=== PATIENT | female | born 1995 | race Caucasian/White ===

== ENCOUNTER 2022-01-13 09:41 | Emergency (ER) | payer BC, SELFPAY ==
--- NOTE | ~2022-01-13 | US_ITS ---
EXAMINATION: US OB <=14 wk fetus w TV DATE: 01/13/2022 11:11 INDICATION: Pelvic pain during first trimester TECHNIQUE: Real-time pelvic transabdominal and transvaginal ultrasound was performed. COMPARISON: None. FINDINGS: The uterus measures 8.0 x 5.1 x 4.3 cm. There is an intrauterine gestational sac. There is a small subchorionic hematoma. A yolk sac is identified. heart motion is identified measuring 112 beats per minute (bpm) by M-mode Doppler. The crown rump length measures 4 mm, which correl ates with an estimated gestational age of 6 weeks and 0 day(s) (+/-) 4 day(s). The right ovary measures 1.8 x 1.4 x 1.3 cm. The left ovary measures 2.5 x 2.5 x 1.9 cm. There is nor mal vascular flow in the ovaries. There is a small amount of free fluid in the pelvis adjacent to the left ovary. IMPRESSION: 1. Live intrauterine with an estimated gestational age of 6 weeks and 0 day(s) (+/-) 4 day( s) and an estimated delivery date of 09/08/2022. 2. Small subchorionic hematoma. Reviewed, dictated and finalized at location A. [employer] INTERNS[employer]IP IMPRESSION: 1. Live intrauterine with an estimated gestational age of 6 weeks and 0 day(s) (+/-) 4 day(s) and an estimated delivery date of 09/08/2022. 2. Small subchorionic hematoma.
[2022-01-13 09:49] VITALS: BP 140/88; PULSE 77; RESP 12; TEMP 36.7; O2SAT 100
[2022-01-13 10:08] VITALS: BP 140/85; PULSE 88; RESP 18; O2SAT 100
[2022-01-13 10:47] LABS: Basophils Absolute Auto 0.1 K/mm3 (0.0-0.1); Basophils Percent Auto 0.7 % (0.2-1.2); Eosinophils Percent Auto 0.4 % (0-4.4); Hematocrit 42.5 % (37.0-47.0); Hemoglobin 14.4 g/dL (12.0-15.0); Immature Granulocyte Absolute 0.02 K/mm3 (0.00-0.031); Immature Granulocyte Percent A 0.3 % (0-0.5); Lymphocytes Absolute Auto 0.71 K/mm3 (0.9-3.2); Lymphocytes Percent Auto 10.6 % (18.3-44.2); Mean Corpuscular HGB Conc 33.9 g/dl (32-36); Mean Corpuscular Hemoglobin 32.2 pg (26-34); Mean Corpuscular Volume 95.1 fl (80-100); Mean Platelet Volume 10.2 fl (7.4-10.4); Monocytes Absolute Auto 0.4 K/mm3 (0.1-0.6); Monocytes Percent Auto 6.4 % (2.6-8.5); Neutrophils Absolute Auto 5.5 K/mm3 (1.3-6.7); Neutrophils Percent Auto 81.6 % (45.5-73.1); Platelet Count Result 183 k/mm3 (150-375); Red Blood Count 4.47 M/mm3 (4.2-5.4); Red Cell Distribution Width 12.1 % (11.5-14.5); White Blood Count 6.7 K/mm3 (4.5-10.0)
[2022-01-13 10:50] LABS: Appearance Urine Clear (Clear); Bilirubin Urine Negative (Negative); Blood Urine Negative (Negative); Color Urine Yellow (Yellow); Glucose Urine UA Negative (Negative); Ketones Urine 3+ mg/dL (Negative); Leukocyte Esterase Ur Negative LEU/UL (Negative); Nitrate Urine Negative (Negative); Protein Urine Negative (Negative); Specific Grav Ur 1.015 (1.001-1.035); Urobilinogen Urine 0.2 mg/dL (<2.0); pH Urine 7.5 (5.0-9.0)
[2022-01-13 10:59] LABS: Alanine Aminotransferase 26 U/L (6-35); Albumin Level 4.7 g/dL (3.5-5.1); Alkaline Phosphatase 46 U/L (38-126); Anion Gap 14 mmol/L (8-16); Aspartate Amino Transferase 23 U/L (14-36); Bilirubin,Total 0.6 mg/dL (0.2-1.3); Blood Urea Nitrogen 4 mg/dL (7-17); Carbon Dioxide 25 mmol/L (22-30); Chloride 98 mmol/L (98-107); Estimated CRCL calculation 104 ml/min; Estimated Glomerular Filt Rate > 60; Glucose 105 mg/dL (65-110); Lipase 41 U/L (23-300); Potassium 3.4 mmol/L (3.4-5.0); Sodium 137 mmol/L (137-145)
[2022-01-13 11:00] LABS: Add Urine Microscopic? YES; Bacteria Urine Trace /hpf; Mucus Urine Few /lpf; RBC Urine 0-2 /hpf (0-2); Squamous Epithelial Cell Urine Few /hpf (Few)
[2022-01-13] MEDS: SODIUM CHLORIDE 0.9% IV 1,000 ML 999 ML IV CONT (11:49)
[2022-01-13 12:26] VITALS: BP 137/83; PULSE 95; RESP 18; O2SAT 100
--- NOTE | 2022-01-13 12:48 | ED.ABDPAIN ---
HPI - Abdominal Pain General Chief Complaint: Abdominal Pain Stated Complaint: Cramping with bowel movement Time Seen by Provider: 01/13/22 09:59 History of Present Illness HPI narrative: Patient is 26-year-old female who presents ER with lower abdominal cramping. Ongoing over the last week. Will get cramping in her lower abdomen that then makes her feel like she may need to have a bowel movement. She gets nauseous. No diarrhea. She reports she has had some firm stools. No vaginal bleeding or vaginal discharge. She does think she is . LMP early December but cannot give a date. Her OB is Dr. Lopez. She is a . Related Data Allergies Allergy/AdvReac Type Severity Reaction Status Date / Time No Known Allergies Allergy Verified 01/13/22 10:07 Review of Systems Review of Systems: All systems reviewed & are unremarkable except as noted in HPI and below Constitutional: Constitutional: Denies chills, Denies fatigue and Denies fever(s) ENT: Denies nasal congestion and Denies sore throat Cardiovascular: Cardiovascular: Denies chest pain, Denies rapid heart rate and Denies radiating jaw, neck or arm pain Respiratory: Respiratory: Denies cough and Denies dyspnea Gastrointestinal: Gastrointestinal: Denies vomiting Genitourinary: Genitourinary: Denies abnormal vaginal bleeding, Denies hematuria, Denies nocturia, Denies dysuria, Reports pelvic pain and Denies vaginal discharge PMFSH Past Medical History Medical History (Updated 01/13/22 @ 13:01 by Edy Hill MD) Healthy female adult Surgical History Surgical History (Updated 01/13/22 @ 12:53 by Edy Hill MD) No history of previous surgery Social History Social History (Updated 01/13/22 @ 12:55 by Edy Hill MD) Smoking status: Never smoker Exam Narrative: GENERAL: Well-appearing, well-nourished, and in no acute distress. HEAD: Normocephalic, atraumatic. EYES: PERRL and EOMI. ENT: Mucous membranes moist. CHEST: Clear to auscultation. No respiratory distress. HEART: Regular rate and rhythm. Normal peripheral pulses. ABDOMEN: Soft, mild right adnexal pain, nondistended. EXTREMITIES: Normal range of motion. No edema. SKIN: Warm, dry, no rash. NEURO: Alert and oriented x3. PSYCH: Normal mood and affect. Course Course Emergency Course: Patient informed of results. Discussed with Dr. Espino recommends close follow-up. Pain likely related to subchorionic hemorrhage. Vital Signs Vital signs: Vital Signs Temperature 98.0 F 01/13/22 09:49 Pulse Rate 77 01/13/22 09:49 Respiratory Rate 12 01/13/22 09:49 Blood Pressure 140/88 01/13/22 09:49 Pulse Oximetry 100 01/13/22 09:49 Temperature 98.0 F 01/13/22 09:49 Pulse Rate 95 01/13/22 12:26 Respiratory Rate 18 01/13/22 12:26 Blood Pressure 137/83 01/13/22 12:26 Pulse Oximetry 100 01/13/22 12:26 MDM - Abdominal Pain Lab Data Result diagrams: 01/13/22 10:31 01/13/22 10:31 Labs: Lab Results 01/13/22 01/13/22 01/13/22 Range/Units 10:31 10:31 10:31 WBC 6.7 (4.5-10.0) K/mm3 RBC 4.47 (4.2-5.4) M/mm3 Hgb 14.4 (12.0-15.0) g/dL Hct 42.5 (37.0-47.0) % MCV 95.1 (80-100) fl MCH 32.2 (26-34) pg MCHC 33.9 (32-36) g/dl RDW 12.1 (11.5-14.5) % Plt Count 183 (150-375) k/mm3 MPV 10.2 (7.4-10.4) fl Immature Gran % (Auto) 0.3 (0-0.5) % Neut % (Auto) 81.6 H (45.5-73.1) % Lymph % (Auto) 10.6 L (18.3-44.2) % Cross % (Auto) 6.4 (2.6-8.5) % Eos % (Auto) 0.4 (0-4.4) % Baso % (Auto) 0.7 (0.2-1.2) % Lymph # (Auto) 0.71 L (0.9-3.2) K/mm3 Cross # (Auto) 0.4 (0.1-0.6) K/mm3 Eos # (Auto) 0.0 (0-0.3) K/mm3 Baso # (Auto) 0.1 (0.0-0.1) K/mm3 Abs Immat Gran (auto) 0.02 (0.00-0.031) K/mm3 Absolute Neuts (auto) 5.5 (1.3-6.7) K/mm3 Absolute Nucleated RBC 0.0 (0.0-0.012) K/mm3 Nucleated RBC % 0.0 (0.0-0.2) % S
[2022-01-13 13:20] VITALS: BP 110/75; PULSE 74; RESP 18; O2SAT 100
== END 2022-01-13 13:22 | disposition home or self-care (01) ==
PROVIDERS: Emergency Provider Emergency Medicine; PCP Family Medicine Sports Medicine
DX: O46.91 Antepartum hemorrhage, unspecified, first trimester (principal); Z3A.01 Less than 8 weeks gestation of pregnancy
CPT/HCPCS: 36415; 76801; 76817; 80053; 81001; 81025; 83690; 84702; 85025; 86850; 86900; 86901; 96360; 99284; J7030

== ENCOUNTER → 2022-02-15 11:23 | Outpatient (CLI) | payer BC, SELFPAY ==
--- NOTE | ~2022-02-15 | US_ITS ---
EXAMINATION: US OB <= 14 weeks fetus DATE: 02/15/2022 11:53 INDICATION: First trimester viability assessment and subchorionic hematoma follow-up TECHNIQUE: Real-time pelvic transabdominal and transvaginal ultrasound was performed. COMPARISON: 01/13/2022 FINDINGS: The uterus measures 14 x 6.3 x 4 9.2 cm. There is an intrauterine gestational sac. No pers istent subchorionic hematoma is identified. heart motion is identified measuring 183 beats per minute (bpm) by M-mode Doppler. The crown rump length measures 4.0 cm, which correlates with an estimated gestational age of 10 weeks and 6 day(s) (+/-) 7 day(s). The ovaries are not visualized however no adnexal abnormality is seen. There is no free fluid in the pelvis. IMPRESSION: 1. Live intrauterine with an estimated gestational age of 10 weeks and 6 day(s) (+/-) 7 day (s) and an estimated delivery date of 09/07/2022. 2. No persistent subchorionic hematoma identified. Reviewed, dictated and finalized at location A. STICS LEAD IMPRESSION: 1. Live intrauterine with an estimated gestational age of 10 weeks an d 6 day(s) (+/-) 7 day(s) and an estimated delivery date of 09/07/2022. 2. No persistent subchorionic hematoma identified.
== END ==
PROVIDERS: PCP Obstetrics & Gynecology Gynecology; Visit Provider Obstetrics & Gynecology Gynecology
DX: O36.80X0 Pregnancy with inconclusive fetal viability, not applicable or unspecified (principal); O36.8910 Maternal care for other specified fetal problems, first trimester, not applicable or unspecified; Z3A.10 10 weeks gestation of pregnancy
CPT/HCPCS: 76801

== ENCOUNTER 2022-04-14 10:16 | Outpatient (CLI) | payer BC, SELFPAY ==
--- NOTE | ~2022-04-14 | US_ITS ---
EXAMINATION: US OB /maternal detail DATE: 04/14/2022 11:12 INDICATION: Second trimester anatomic survey TECHNIQUE: Real-time ultrasound of the pelvis was performed. COMPARISON: 02/15/2022 FINDINGS: There is a single living fetus in breech presentation. The placenta is anterior and 4.6 cm from the i nternal cervical os. The cervical length is 3.1 cm. heart rate is 161 beats per minute (bpm). cardiac activity and movement are noted. The amniotic fluid index is subjectively normal. Multiple tiny choroid plexus cysts are noted. The following anatomy was identified as normal: 4 chamber heart 3 vessel cord cord insertion kidneys urinary bladder stomach spine diaphragm ventricles cisterna magna cerebellum The following biometric data were obtained: Biparietal diameter (BPD): 4.2 cm; head circumference (HC): 16.0 cm; abdominal circumference (AC): 13 .5 cm; femur length (FL): 2.8 cm. These measurements are concordant. Estimated weight is 260 g +/- 39 g, which correlates with the 44th percentile when 09/09/2022 is used as estimated date of delivery. As single measurements, these parameters are each equal to the following estimated gestational ages w ith ranges of +/- 2 standard deviations: BPD: 18 weeks 6 days ( 17 weeks 1 days - 20 weeks 4 days). HC: 18 weeks 6 days ( 17 weeks 2 days - 20 weeks 2 days). AC: 19 weeks 0 days ( 16 weeks 6 days - 21 weeks 0 days). FL: 18 weeks 5 days ( 16 weeks 6 days - 20 weeks 3 days). estimated gestational age based solely on measurements from this exam is 18 weeks 6 days +/- 1 weeks 2 days. IMPRESSION: 1. Single living fetus in breech presentation. 2. Estimated weight is 260 g +/- 39 g, which correlates with the 44th percentile when 09/09/2022 is used as estimated date of delivery. 2. Multiple tiny choroid plexus cysts noted. Reviewed, dictated and finalized at location B. MANAGEMENT SUPERVISOR IMPRESSION: 1. Single living fetus in breech presentation. 2. Estimated weight is 260 g +/- 39 g, which correlates with the 44th per centile when 09/09/2022 is used as estimated date of delivery. 2. Multiple tiny choroid plexus cysts noted.
== END 2022-04-14 10:17 ==
LOC: MICIMG 10:17
PROVIDERS: PCP Obstetrics & Gynecology Gynecology; Visit Provider Obstetrics & Gynecology Gynecology
DX: Z36.9 Encounter for antenatal screening, unspecified (principal)
CPT/HCPCS: 76805

== ENCOUNTER 2022-07-19 15:22 | Outpatient (CLI) | payer BC, SELFPAY ==
--- NOTE | ~2022-07-19 | US_ITS ---
EXAMINATION: US OB follow up DATE: 07/19/2022 15:55 INDICATION: Choroid plexus cysts. Third trimester. TECHNIQUE: Real-time ultrasound of the pelvis was performed. COMPARISON: Ultrasound 04/14/2022, 02/15/2022, 01/13/2022 FINDINGS: There is a single living fetus in vertex presentation. The placenta is anterior, 13.3 cm from the ce rvix. heart rate is 135 beats per minute (bpm). The choroid plexus is unremarkable. The amnioti c fluid index is 16.3 cm, which is normal. The following biometric data were obtained: Biparietal diameter (BPD): 8.3 cm; head circumference (HC): 29.8 cm; abdominal circumference (AC): 29 .4 cm; femur length (FL): 6.0 cm. These measurements are concordant. Estimated weight is 2032 g +/- 305 g, which correlates with the 40th percentile when 09/08/22 is used as estimated date of delivery. As single measurements, these parameters are each equal to the following estimated gestational ages: BPD: 33 weeks 2 days. HC: 33 weeks 0 days. AC: 33 weeks 3 days. FL: 31 weeks 2 days. estimated gestational age based solely on measurements from this exam is 32 weeks 5 days +/- 2 weeks 2 days. IMPRESSION: 1. Single living fetus in vertex presentation. 2. Estimated weight is 2032 g +/- 305 g, which correlates with the 40th percentile when 09/08/22 is used as estimated date of delivery. Reviewed, dictated and finalized at location A.
== END 2022-07-19 15:23 ==
PROVIDERS: PCP Obstetrics & Gynecology Gynecology; Visit Provider Obstetrics & Gynecology Gynecology
DX: Z36.9 Encounter for antenatal screening, unspecified (principal); Z3A.32 32 weeks gestation of pregnancy
CPT/HCPCS: 76816

== ENCOUNTER 2022-09-06 06:03 | Inpatient (IN) | payer BC, SELFPAY ==
[2022-09-06] VITALS (163 sets, daily range): BP systolic 66–158; BP diastolic 52–133; PULSE 72–120; TEMP 36.2–37.6; O2SAT 98–100; BMI 34.0
--- NOTE | 2022-09-06 06:03 | LDADM ---
This patient, Janet Morales, was admitted to Labor/Delivery/Recovery 107 on 09/06/22 at 06:03. Plans for labor, pain management and were discussed with patient. Patient/family oriented to hospital policies and general routines including ID bracelet, bed and alarms, visiting hours, pain management, procedures, bathroom and other care routines, personal items, smoking policy, room service/diet and guest tray routines, infant security routines, and visiting hours. Patient/Family are encouraged to report perceived risks to care and to ask questions if they do not understand what they are told or what they should do. See OBIX for further documentation.
[2022-09-06 06:57] LABS: Basophils Absolute Auto 0.1 K/mm3 (0.0-0.1); Basophils Percent Auto 0.7 % (0.2-1.2); Eosinophils Absolute Auto 0.2 K/mm3 (0-0.3); Eosinophils Percent Auto 2.4 % (0-4.4); Hematocrit 40.6 % (37.0-47.0); Hemoglobin 14.2 g/dL (12.0-15.0); Immature Granulocyte Absolute 0.03 K/mm3 (0.00-0.031); Immature Granulocyte Percent A 0.4 % (0-0.5); Lymphocytes Absolute Auto 2.35 K/mm3 (0.9-3.2); Lymphocytes Percent Auto 28.7 % (18.3-44.2); Mean Corpuscular Hemoglobin 33.6 pg (26-34); Mean Platelet Volume 10.5 fl (7.4-10.4); Monocytes Absolute Auto 0.5 K/mm3 (0.1-0.6); Monocytes Percent Auto 5.6 % (2.6-8.5); Neutrophils Absolute Auto 5.1 K/mm3 (1.3-6.7); Neutrophils Percent Auto 62.2 % (45.5-73.1); Platelet Count Result 194 k/mm3 (150-375); Red Blood Count 4.23 M/mm3 (4.2-5.4); Red Cell Distribution Width 12.4 % (11.5-14.5); White Blood Count 8.2 K/mm3 (4.5-10.0)
[2022-09-06] MEDS: miSOPROStol 25 MCG TABLET BY MOUTH (07:10)
[2022-09-06] MEDS: LACTATED RINGERS 1,000 ML 125 ML IV CONT ×3 (07:10→20:23)
[2022-09-06] MEDS: AMPICILLIN 2 GM/NS 100 ML 2 GM/100 ML BAG IVPB (07:11)
--- NOTE | 2022-09-06 07:53 | WPDOBADMIT ---
Obstetrics - Admit Note Admission Note: record reviewed. No pertinent additions to the history and/or any subsequent changes in the physical findings that are not consistent with the expected course of the were found. Additions to the history and/or subsequent changes in the physical findings follow. Here for MIL. Cervix /-2. Cytotec x 1 then will AROM and start pitocin at lunch
[2022-09-06] MEDS: AMPICILLIN 1 GM/NS 50 ML 1 GM/50 ML BAG IVPB ×4 (11:23→23:24)
[2022-09-06] MEDS: OXYTOCIN 30 UNITS/NS 500 ML 30 UNITS/500 ML BAG 6 UNITS IV CONT (11:53)
--- NOTE | 2022-09-06 13:03 | PM.OBPNLAB ---
Pain Control Date/time seen: 09/06/22 13:03 Pain control: tolerating well Pelvic Exam Dilation (cm): 2 Effacement (%): 50 station: -2 Amniotic membrane status: Ruptured (AROM with clear fluid) Status status: Category l Assessment and Plan Assessment: induction ongoing
[2022-09-06] MEDS: ONDANSETRON INJ 4 MG/2 ML VIAL IV PUSH (16:31)
[2022-09-07] VITALS (273 sets, daily range): BP systolic 104–179; BP diastolic 50–151; PULSE 49–187; RESP 18–20; TEMP 36.3–37.2; O2SAT 95–100
[2022-09-07] MEDS: ONDANSETRON INJ 4 MG/2 ML VIAL IV PUSH ×2 (00:49→15:30)
[2022-09-07] MEDS: AMPICILLIN 1 GM/NS 50 ML 1 GM/50 ML BAG IVPB ×3 (03:22→11:32)
[2022-09-07] MEDS: LACTATED RINGERS 1,000 ML 125 ML IV CONT ×2 (05:18→13:18)
[2022-09-07] MEDS: AZITHROMYCIN 500 MG/NS 250 ML 500 MG/250 ML BAG 250 MG IVPB (14:29)
--- NOTE | 2022-09-07 15:42 | P.OP_ITS ---
Procedure Note - Detailed Date of Procedure 09/07/22 Pre-op Diagnosis Intrauterine at 39 weeks failure to descend Post-op Diagnosis Same ( occiput posterior position) Procedure Performed primary low-transverse section Surgeon Bridgette Haines MD Anesthesia Epidural Findings uterus with multiple subserosal fibroids measuring 1/2 to 2 cm anterior and posterior surfaces; female infant in the left occiput posterior position with a nuchal cord x1; meconium-stained fluid; weighing 7lb with 5 and 9 Apgars Description of Procedure The patient is taken to the operating room and placed under anesthesia in the dorsal supine position with a leftward tilt. The patient is prepped and draped in usual sterile fashion. Pfannenstiel skin incision was made with a scalpel and carried down to the underlying layer of fascia. Fascia was nicked in the midline with a scalpel and extended laterally using Carlin scissors. Ochsner was used to tent the fascia which was then dissected off using sharp and blunt dissection. The rectus muscles are in the midline and the peritoneum entered using a Peon. The incision was extended with blunt traction. The bladder blade is placed. The vesicouterine peritoneum was noted to be very high on the uterus. It is grasped with a Peon and entered with Metzenbaum scissors. It is extended laterally and the bladder flap created digitally. The lower uterine segment was incised in a transverse fashion with the scalpel. The neck is noted at the incision. The incision was extended with blunt traction. The 's head was brought up into the incision and delivered while the communications assistant applied fundal pressure. Nuchal cord x1 was reduced. The was fully delivered. The infant cord is clamped and cut and the infant handed to the waiting nursery nurse and land developer. The placenta was removed using manual traction. There was delayed detachment of 9minutes. Once detachment occurred the placenta delivered intact. The uterus is cleared of all clots and debris and exteriorized. The uterine incision was closed using 0 Monocryl in a running locked fashion with the same suture used to imbricate. One additional [id number] suture was required in the midline for hemostasis. There was a slight downward extension to the right. Good hemostasis is noted. The cul-de-sac is irrigated. The uterus was returned to the abdomen. The gutters were irrigated. The incision was again inspected in its entirety and noted to be hemostatic. The fascia is closed using 0 Vicryl in a running fashion. Subcutaneous tissues were irrigated and made hemostatic usin g Bovie cautery. Skin is closed using 4-0 Vicryl in a subcuticular fashion. Dermaflex was placed over the incision. Sponge, needle, and instrument counts are correct per the OR staff. The patient received Ancef at room time and received Zithromax. Patient is taken to recovery in stable condition. Estimated Blood Loss 630 Drains Yes ( Goode catheter) Packing No Pathology Yes ( placenta) Complications No immediate complications Condition Stable Disposition Floor
--- NOTE | 2022-09-07 15:49 | PM.OBDSVD ---
DS: Admitting Diagnosis Discharge Date 09/10/22 Admitting Diagnosis intrauterine at 39 weeks for medical induction of labor DS: Discharge Diagnosis Discharge Diagnosis (1) Failure of descent in labor, delivered, current hospitalization: Code(s): O62.2 - Other uterine inertia Status: Acute (2) S/P primary low transverse : Code(s): Z98.891 - History of uterine scar from previous surgery Status: Acute OB - DS: Summary OB Procedures : Ultrasound OB Procedures Intrapartum: low cervical, transverse OB Procedures: : None Peripartum Data Infant Delivery Method: Section Procedures: Procedures Operation Date: 09/07/22 15:00 <No data on this case meets the specified criteria> complications: none Status at Discharge Functional status at discharge: independent ambulation Overall status at discharge: patient is progressing back to baseline Time Spent with Patient Time attestation: Total time spent providing and/or coordinating discharge services: Discharge Plan Discharge Attending physician on discharge: Bridgette Haines Discharging Clinician: Bridgette Haines Anticipated Discharge Date/Time: 09/10/22 15:50 Patient Disposition: Home, Self-Care Activity: may shower, may drive after 2 weeks and pelvic rest Diet: regular Wound Care Instructions: incision open to air Patient Instructions: Antibiotic Form Stand Alone Forms: General Discharge Information Follow-up/Referrals: Bridgette Haines MD [Physician] - 1 Week ( and 6 week) Discharge Medications: New hydrocodone-acetaminophen 5-325 mg tablet 1 tablet PO Q4H PRN (Reason: pain) Qty: 14 0RF Continued Complete 30-975 mg-mcg Tablet 1 tablet PO DAILY Discontinued aspirin [Baby Aspirin] 81 mg Tablet,Chewable 81 mg PO DAILY Date of admission: 09/06/22 06:03 Primary Care Provider: Richard,Lucero Torres Admitting Provider: Bridgette Haines Attending physician on admission: Bridgette Haines Condition: Stable
[2022-09-07 16:38] LABS: Rapid Plasma Reagin Non-Reactive (NonReactive)
[2022-09-07] MEDS: OXYTOCIN 30 UNITS/NS 500 ML 30 UNITS/500 ML BAG 125 UNITS IV CONT (17:37)
[2022-09-07] MEDS: KETOROLAC 30 MG/ML VIAL (*BKC) IV PUSH (18:47)
[2022-09-07] MEDS: DEXTROSE 5%/0.45% SOD CHL 1,000 ML 125 ML IV CONT (21:57)
[2022-09-08] MEDS: KETOROLAC 30 MG/ML VIAL (*BKC) IV PUSH (02:36)
[2022-09-08 03:00] VITALS: BP 108/64; PULSE 100; RESP 18; TEMP 36.4; O2SAT 100
[2022-09-08 03:05] LABS: Basophils Absolute Auto 0.1 K/mm3 (0.0-0.1); Basophils Percent Auto 0.4 % (0.2-1.2); Eosinophils Absolute Auto 0.1 K/mm3 (0-0.3); Eosinophils Percent Auto 0.5 % (0-4.4); Hematocrit 37.8 % (37.0-47.0); Hemoglobin 11.6 g/dL (12.0-15.0); Immature Granulocyte Absolute 0.04 K/mm3 (0.00-0.031); Immature Granulocyte Percent A 0.3 % (0-0.5); Immature Platelet Fraction Pct 3.8 % (0.9-11.2); Lymphocytes Absolute Auto 1.86 K/mm3 (0.9-3.2); Lymphocytes Percent Auto 13.9 % (18.3-44.2); Mean Corpuscular HGB Conc 30.7 g/dl (32-36); Mean Corpuscular Hemoglobin 33.1 pg (26-34); Mean Platelet Volume 10.7 fl (7.4-10.4); Monocytes Absolute Auto 0.7 K/mm3 (0.1-0.6); Monocytes Percent Auto 5.2 % (2.6-8.5); Neutrophils Absolute Auto 10.7 K/mm3 (1.3-6.7); Neutrophils Percent Auto 79.7 % (45.5-73.1); Platelet Count Result 152 k/mm3 (150-375); Red Cell Distribution Width 12.9 % (11.5-14.5); White Blood Count 13.4 K/mm3 (4.5-10.0)
[2022-09-08 07:00] VITALS: BP 111/66; PULSE 94; RESP 14; TEMP 36.4; O2SAT 96
--- NOTE | 2022-09-08 08:26 | PM.OBPNVD ---
OB - PN: Subj Subjective Date/time seen: 09/08/22 08:26 Patient comments: no complaints and pain well controlled baby status: doing well OB - PN: Obj Data Labs 09/08/22 02:36 Labs: Laboratory Results - last 24 hr 09/06/22 09/08/22 06:41 02:36 WBC 13.4 H RBC 3.50 L Hgb 11.6 L Hct 37.8 MCV 108.0 H D MCH 33.1 MCHC 30.7 L RDW 12.9 Plt Count 152 MPV 10.7 H Immature Gran % (Auto) 0.3 Neut % (Auto) 79.7 H Lymph % (Auto) 13.9 L Evangeline % (Auto) 5.2 Eos % (Auto) 0.5 Baso % (Auto) 0.4 Lymph # (Auto) 1.86 Evangeline # (Auto) 0.7 H Eos # (Auto) 0.1 Baso # (Auto) 0.1 Abs Immat Gran (auto) 0.04 H Absolute Neuts (auto) 10.7 H Absolute Nucleated RBC 0.0 Nucleated RBC % 0.0 % Immature Plt Fraction 3.8 RPR Non-reactive OB - PN A/P Plan day: 1 Plan: routine care Time Spent With Patient Time: Total time spent is greater than 50% in coordination of care (as documented) at patient's floor/unit and/or counseling patient: Exam Narrative: inc c/d/i minimal bruising below incision : Bimanual exam- vagina & uterus: other (Uterus firm, nt @U)
--- NOTE | 2022-09-08 09:30 | WPDANLDNPN2 ---
Anes-Prog Note L&D-Neuraxial Date/Time: 09/08/22 09:30 Neuraxial medications: intrathecal PF morphine Opiod-related complaints: none Patient feedback: Patient satisfied with post-operative pain management.
--- NOTE | 2022-09-08 09:32 | WPDANLDPN2 ---
Anes-Prog Note L&D Date/Time: 09/08/22 09:32 Comfortable throughout: labor, delivery and section Neuraxial method: spinal Epidural/Spinal procedure site: clean & non-tender Neuro status: Neuro function grossly intact. Cardiovascular status: normal Respiratory status: normal Airway patency: baseline Mental status: baseline Post-Op hydration status: normal Vital Signs: Last Vital Signs Temp 36.4 C 09/08/22 03:00 Pulse 100 09/08/22 03:00 Resp 18 09/08/22 03:00 BP 108/64 09/08/22 03:00 Pulse Ox 100 09/08/22 03:00 O2 Del Method Room Air 09/08/22 03:00 Pain score (VAS): 1 I/O: Intake & Output 09/07/22 09/08/22 09/08/22 23:59 07:59 15:59 Intake Total 500 1800 Output Total 350 1525 Balance 150 275 Patient feedback: Patient satisfied with anesthetic care.
[2022-09-08] MEDS: SIMETHICONE 80 MG TAB.CHEW PO (12:00)
[2022-09-08] MEDS: MULTIVIT/MIN/PREN/FOL AC/IRON TABLET 1 TAB PO (12:00)
[2022-09-08] MEDS: DOCUSATE SODIUM 100 MG CAPSULE PO ×3 (12:00→16:30)
[2022-09-08] MEDS: HYDROcodone/acetaminophen (*CRX) 5-325 MG TABLET 1 TAB PO ×2 (12:00→16:30)
[2022-09-08] MEDS: IBUPROFEN 600 MG TABLET PO (16:30)
[2022-09-08 19:20] VITALS: BP 133/86; PULSE 92; RESP 16; TEMP 36.6; O2SAT 99
[2022-09-09] MEDS: HYDROcodone/acetaminophen (*CRX) 5-325 MG TABLET 1 TAB PO ×3 (00:53→22:03)
[2022-09-09] MEDS: IBUPROFEN 600 MG TABLET PO ×3 (00:54→22:03)
--- NOTE | 2022-09-09 08:10 | PM.OBPNVD ---
OB - PN: Subj Subjective Date/time seen: 09/09/22 08:10 Patient comments: no complaints and pain well controlled baby status: doing well OB - PN: Obj Data Labs 09/08/22 02:36 OB - PN A/P Plan day: 2 Plan: routine care Time Spent With Patient Time: Total time spent is greater than 50% in coordination of care (as documented) at patient's floor/unit and/or counseling patient: Exam Narrative: inc c/d/i : Bimanual exam- vagina & uterus: other (Uterus firm, nt @U)
[2022-09-09] MEDS: MULTIVIT/MIN/PREN/FOL AC/IRON TABLET 1 TAB PO (11:15)
[2022-09-09] MEDS: SIMETHICONE 80 MG TAB.CHEW PO ×2 (11:15→22:03)
[2022-09-09] MEDS: DOCUSATE SODIUM 100 MG CAPSULE PO ×2 (11:15→22:08)
[2022-09-09 12:00] VITALS: BP 123/86; PULSE 72; RESP 16; TEMP 36.9
[2022-09-09 21:00] VITALS: BP 135/90; PULSE 86; RESP 16; TEMP 36.7
[2022-09-10 07:41] VITALS: BP 154/107; PULSE 92; RESP 16; TEMP 36.7; O2SAT 98
[2022-09-10] MEDS: DOCUSATE SODIUM 100 MG CAPSULE PO (07:52)
[2022-09-10] MEDS: IBUPROFEN 600 MG TABLET PO (07:52)
[2022-09-10] MEDS: MULTIVIT/MIN/PREN/FOL AC/IRON TABLET 1 TAB PO (07:52)
[2022-09-10] MEDS: HYDROcodone/acetaminophen (*CRX) 5-325 MG TABLET 1 TAB PO (07:52)
[2022-09-10] MEDS: SIMETHICONE 80 MG TAB.CHEW PO (07:52)
[2022-09-10 08:37] VITALS: BP 149/101
--- NOTE | 2022-09-10 09:45 | PM.OBPNVD ---
OB - PN: Subj Subjective Date/time seen: 09/10/22 09:45 Patient comments: no complaints, pain well controlled and tolerating diet [place] baby status: other (transferred to [facility] with heart murmur and BP differential upper/lower ext. ) OB - PN: Obj Data Labs 09/08/22 02:36 OB - PN A/P Plan day: 3 Plan: routine care and discharge home Time Spent With Patient Time: Total time spent is greater than 50% in coordination of care (as documented) at patient's floor/unit and/or counseling patient: Exam Narrative: inc c/d/i : Bimanual exam- vagina & uterus: other (Uterus firm, nt @U)
--- NOTE | 2022-09-10 10:29 | PC.NURSE ---
Patient viewed the discharge video Mother & Baby Care, The First Two Weeks . Patient was given the opportunity and encouraged to ask questions. Patient verbalized understanding of information shared and has been given the mother/baby guide for home reference.
[2022-09-11 09:57] VITALS: BP 143/86; PULSE 82; RESP 18; TEMP 36.8; O2SAT 100
== END 2022-09-10 10:42 | disposition home or self-care (01) | DRG 788 ==
LOC: ANHLDR 09-07 15:51 → ANHOB2 09-07 18:08
PROVIDERS: Admitting Provider Obstetrics & Gynecology Gynecology; PCP Family Medicine Sports Medicine; Visit Provider Obstetrics & Gynecology Gynecology
PROC: 10D00Z1 Extraction of Products of Conception, Low, Open Approach (ICD-10-PCS; CPT 59514; principal; 2022-09-07 15:00)
DX: O99.824 Streptococcus B carrier state complicating childbirth (principal); Z37.0 Single live birth; Z3A.39 39 weeks gestation of pregnancy; O69.81X0 Labor and delivery complicated by cord around neck, without compression, not applicable or unspecified; O64.0XX0 Obstructed labor due to incomplete rotation of fetal head, not applicable or unspecified; O62.2 Other uterine inertia; D25.2 Subserosal leiomyoma of uterus; O77.0 Labor and delivery complicated by meconium in amniotic fluid; O34.13 Maternal care for benign tumor of corpus uteri, third trimester
CPT/HCPCS: 36415; 85025; 85055; 86592; 86850; 86900; 86901; 88307; A9270; J0290; J0456; J1885; J2274; J2405; J2590; J2795; J7120

== ENCOUNTER 2024-05-27 15:35 | Outpatient (CLI) | payer BC, SELFPAY ==
--- NOTE | ~2024-05-27 | US_ITS ---
EXAMINATION: US OB <= 14 weeks fetus DATE: 05/27/2024 15:56 INDICATION: First trimester with inconclusive viability TECHNIQUE: Real-time pelvic ultrasound utilizing transabdominal probe was performed. The hazel barragan radiologist was not present for the study. COMPARISON: None. FINDINGS: The uterus measures 12.7 x 7.2 x 6.0 cm. There is an intrauterine gestational sac. A yolk sac and fe gage pole are identified. The crown rump length measures 4.9 cm, which correlates with an estimated ge stational age of 11 weeks and 5 days. heart motion is identified measuring 185 beats per minute (bpm) by M-mode Doppler. The right ovary measures 3.1 x 2.1 x 2.4 cm. The left ovary is not visualized There is no free fluid in the pelvis. IMPRESSION: 1. Single living fetus with heart rate of 185 bpm. 2. Gestational age by ultrasound of 11 weeks 5 day(s) +/- 7 day(s) with ultrasound estimated date of delivery (YADIRA) of 12/11/2024. Reviewed, dictated and finalized at location B. IMPRESSION: 1. Single living fetus with heart rate of 185 bpm. 2. Gestational age by ultrasound of 11 weeks 5 day(s) +/- 7 day(s) with ultras ound estimated date of delivery (YADIRA) of 12/11/2024.
== END 2024-05-27 15:36 | disposition home or self-care (01) ==
LOC: MICIMG 15:38
PROVIDERS: PCP Obstetrics & Gynecology Gynecology; Visit Provider Obstetrics & Gynecology Gynecology
DX: O36.80X0 Pregnancy with inconclusive fetal viability, not applicable or unspecified (principal); Z3A.11 11 weeks gestation of pregnancy
CPT/HCPCS: 76801

== ENCOUNTER 2024-07-28 12:57 | Outpatient (CLI) | payer BC, SELFPAY ==
--- NOTE | ~2024-07-28 | US_ITS ---
EXAMINATION: US OB /maternal detail DATE: 07/28/2024 18:04 CDT INDICATION: Anatomy scan TECHNIQUE: Real-time transabdominal obstetric ultrasound. FINDINGS: 2 para 1 There is a single intrauterine gestation in variable presentation. The placenta is posterior. The tip of the placenta measures 6.3 cm from the internal cervical os. The cervix measures 4 cm in length. cardiac activity and movement is noted with a heart rate of 147 beats per minute. Anatomic parameters are as follows The bladder is visualized and is unremarkable. A three-vessel cord is present. Cord insertion is demonstrated to be on the midline. Bilateral kidneys are present without hydronephrosis. The anterior and posterior margin of the diaphragm is continuous. The cervical, thoracic and lumbar spines are covered in their entirety. choroid plexi are visualized, and unremarkable. Lateral ventricles are visualized measuring 5.6 and 5.8 mm, respectively. The falx is visualized. The cerebellum is visualized measuring 18.4 mm, and is sonographically unremarkable. The cisterna magna measures 5.7mm in anterior to posterior dimension (normal measurement is 2 to 10 m m). The nuchal fold measures 4.5 mm (greater than 6 mm is considered abnormal). Cine of the four-chamber heart is visualized and is anatomic. Both the right and left ventricular outflow tracts are identified and are unremarkable. Limited views of the arms, hands, legs and feet were performed and appear grossly unremarkable. Evaluation of the upper lip and nose to confirm their continuity is appreciated on the submitted imag es. The following biometric data were obtained: Biparietal diameter (BPD): 4.7 cm; head circumference (HC): 17.1 cm; abdominal circumference (AC): 16.2 cm; femur length (FL): 3 cm. These measurements are concordant. Estimated weight is 352.7 g +/- 53 g, which correlates with the 37th percentile when 12/14/2024 is used as estimated date of delivery. As single measurements, these parameters are each equal to the following estimated gestational ages: BPD: 20 weeks 0 days. HC: 19 weeks 5 days. AC: 21 weeks 2 days. FL: 19 weeks 5 days. estimated gestational age based solely on measurements from this exam is 20 weeks 1 day +/- 1 w [place] 3 days. IMPRESSION: Single intrauterine gestation with an approximate gestational age of 20 weeks and 1 day. Estimated du e date by ultrasound is 12/14/2024. Anatomy scan is unremarkable Reviewed, dictated and finalized at location A. IMPRESSION: Single intrauterine gestation with an approximate gestational age of 20 weeks a nd 1 day. Estimated due date by ultrasound is 12/14/2024. Anatomy scan is unremarkable
== END 2024-07-28 12:58 | disposition home or self-care (01) ==
LOC: MICIMG 12:58
PROVIDERS: PCP Obstetrics & Gynecology Gynecology; Visit Provider Obstetrics & Gynecology Gynecology
DX: Z36.9 Encounter for antenatal screening, unspecified (principal); Z3A.00 Weeks of gestation of pregnancy not specified
CPT/HCPCS: 76805

== ENCOUNTER 2024-08-14 09:50 | Outpatient (CLI) | payer BC, SELFPAY ==
--- NOTE | ~2024-08-14 | US_ITS ---
US OB limited 08/14/2024 10:33 Indication: Vaginal bleeding during Procedure: High-resolution Limited obstetrical ultrasound Comparison: No prior studies for comparison. Findings: There is single living intrauterine in transverse presentation. Placenta is poste rior measuring 6.1 cm to the cervix. Amniotic fluid is subjectively normal. heart rate 148 BPM. Impression: 1: Single living intrauterine in transverse presentation. 2: Posterior placenta without previa. The placenta is grossly normal, without suggestion of placenta abruption. However, ultrasound is not diagnostic of abruption since acute hemorrhage can be isoechoi c to be placenta. Recommend clinical correlation. Reviewed, dictated and finalized at location B. Impression: 1: Single living intrauterine in transverse presentation. 2: Posterior placenta without previa. The placenta is grossly normal, without s uggestion of placenta abruption. However, ultrasound is not diagnostic of abru ption since acute hemorrhage can be isoechoic to be placenta. Recommend clinic al correlation.
--- OUTSIDE RECORDS SUMMARY | 2024-08-14 09:57 | XMS_ITS | Clinical Summary ---
Author Organization [facility] u[facility] Address [address] [place] [address] Phone Care Team Providers Care Fiberglass Laminator Name Role Phone Unavailable Primary Care Provider Unavailabl e Encounters Date Type Department Care Team Description 06/18/2024 Chart Note [facility] Maternal and Ground Floor [id number] [place] [address] Betty Arambula RN from Last 3 Months Social History Tobacco Use Types Packs/Day Years Used Date Smoking Tobacco: Never Assessed Comments Unknown Sex and Gender Information Value Date Recorded Sex Assigned at Not on file Legal Sex Female 8:33 AM ANNUAL GIVING DIRECTOR Gender Identity Not on file Sexual Orientation Not on file Plan of Treatment Upcoming Encounters Date Type Department Care Team (Late st Contact Info) Description 08/14/2024 3:00 PM CDT Appointment [facility] Genetic Counseling [address] [facility] [address] [address] Bridgette Haines MD [address] [address] Chaim Briones, FORREST [address] [address] Health Maintenance Due Date Last Done Comments DTAP/TDAP/TD VACCINES (1 - Tdap) 08/08/2014 HEPATITIS B VACCINES (1 of 3 - 19+ 3-dose series) 08/08/2014 CERVICAL CANCER SCREENING 08/08/2016 HPV/Cotest (21-29) 08/08/2016 PAP SMEAR 08/08/2016 INFLUENZA VACCINE (#1) 2023 02/22/2022 HPV VACCINES Aged Out No longer eligi ble based on patient's age to complete this topic Insurance [facility] BLUE ACCESS CHOICE
--- OUTSIDE RECORDS SUMMARY | 2024-08-14 09:57 | XMS_ITS | Referral Summary ---
Author Organization [facility] Address [address] [facility] [facility] [address] [place] [address] Phone Care Team Providers Care Final Inspector Motorcyles Name Role Phone Lucero Ramos MD Primary Care Provider Encounters Date Type Department Care Team Description 07/28/2024 Telephone [facility] Pediatric Genetics [facility] 2nd [place] [address] [place] [phone] Estelle Tate, [facility] [place] Last 3 Months Allergies No known active allergies Medications PNV no.95/ferrous fum/folic ac ( ORAL) Take by mouth daily Active Active Problems No known active problems Immunizations Immunization Administration Dates Next Due Influenza, Quadrivalent, Spl it, Preservative Free, Intramuscular 02/22/2022 Social History Tobacco Use Types Packs/Day Years Used Date Smoking Tobacco: Never Smokeless Tobacco: Never Tobacco Cessation:Counseling Given: Not Answered AUDIT-C Answer Date Recorded Frequency of Alcohol Consumption Not on file 02/22/2022 Q2: How many drinks containi ng alcohol do you have on a typical day when you are drinking? Patient does not drink Frequency of Binge Drinking Not on file 02/02 PHQ-2 Answer Date Recorded PHQ-2 Total Score (If total score is 3 or more points, staff should administer the PHQ-9) 0 02/22/2022 Personal Safety Answer Date Recorded Getting School Help Needed Not on file 02/25 Comments Unknown Sex and Gender Information Value Date Recorded Sex Assigned at Not on file Legal Sex Female 10:45 AM CDT Gender Identity Not on file Sexual Orientation Not on file Last Filed Vital Signs Vital Sign Reading Time Taken Comments Blood Pressure 118/72 02/22/2022 8:29 AM VENDING ROUTE DRIVER Pulse 104 02/22/2022 8:29 AM VENDING ROUTE DRIVER Temperature - - Respiratory Rate - - Oxygen Saturation - - Inhaled Oxygen Concentration - - Weight 73 kg (161 lb) 02/22/2022 8:29 AM VENDING ROUTE DRIVER Height 162.6 cm (5' 4) 02/22/2022 8:29 AM VENDING ROUTE DRIVER Body Mass Index 27.64 02/22/2022 8:29 AM VENDING ROUTE DRIVER Plan of Treatment Not on file Insurance [employer] OOS [employer] ACCESS Care Teams Final Inspector Motorcyles Relationship Specialty Start Date End Date Lucero Ramos MD PCP - General Family Practice 02/22/22
--- OUTSIDE RECORDS SUMMARY | 2024-08-14 09:57 | XMS_ITS | Clinical Summary ---
Author Organization [facility] Address [address] [facility] [address] [place] [address] Phone Care Team Providers Care Seal Mixing Operator Name Role Phone Lucero Ramos MD Primary Care Provider Allergies No known active allergies Medications PNV no.95/ferrous fum/folic ac ( ORAL) Take by mouth daily Active Active Problems No known active problems Encounters Date Type Department Care Team Description 07/28/2024 Telephone [facility] Pediatric Genetics [facility] 2nd [place] [address] [place] [phone] Estelle Tate [facility] from Last 3 Months Immunizations Immunization Administration Dates Next Due Influenza, Quadrivalent, Spl it, Preservative Free, Intramuscular 02/22/2022 Surgical History Surgery Date Site/Laterality Comments NO PAST SURGERIES Medical History Medical History Date Comments No pertinent past medical history Family History Medical History Relation Name Comments Multiple sclerosis Mother Stroke Paternal Grandfather Relation Name Status Comments Father Alive Mother Alive Paternal Grandfather Social History Tobacco Use Types Packs/Day Years [...] on file Sexual Orientation Not on file Obstetrics History Para Term AB IAB SAB Ectopic Multiple Livin g Live Births 1 Date Outcome GA Total Labor Labor/2nd/3rd Weight Sex Type Anes PTL Faith A1 A5 Name Clin Last Filed Vital Signs Vital Sign Reading Time Taken Comments Blood Pressure 118/72 02/22/2022 8:29 AM HUMAN CAPITAL CONSULTANT Pulse 104 02/22/2022 8:29 AM HUMAN CAPITAL CONSULTANT Temperature - - Respiratory Rate - - Oxygen Saturation - - Inhaled Oxygen Concentration - - Weight 73 kg (161 lb) 02/22/2022 8:29 AM HUMAN CAPITAL CONSULTANT Height 162.6 cm (5' 4) 02/22/2022 8:29 AM HUMAN CAPITAL CONSULTANT Body Mass Index 27.64 02/22/2022 8:29 AM HUMAN CAPITAL CONSULTANT Plan of Treatment Health Maintenance Due Date Last Done Comments Cervical Cancer Screening 1995 Hepatitis C Screening 1995 DTaP/Tdap/Td Vaccine (1 - Tdap) 08/08/2006 Varicella Vaccines (1 of 2 - 13+ 2-dose series) 08/08/2008 Hepatitis B Screening 08/08/2013 Depression Screening 02/22/2023 02/22/2022 Regular Well Visit/Exam 18-64 02/22/2023 02/22/2022 Covid-19 Vaccine (3 - 2023-2 5 season) 2023 06/21/2020, 05/31/2020 Influenza Vaccine (Season Ended) 2024 02/22/2022 HPV Vaccines Aged Out No longer eligi ble based on patient's age to complete this topic Pneumococcal vaccine <65 Aged Out No longer eligible based on patient's age to complete this topic Insurance [employer] OOS [facility] ACCESS Care Teams Seal Mixing Operator Relationship Specialty Start Date End Date Lucero Ramos MD PCP - General Family Practice 02/22/22
== END 2024-08-14 09:51 | disposition home or self-care (01) ==
PROVIDERS: PCP Obstetrics & Gynecology Gynecology; Visit Provider Obstetrics & Gynecology Gynecology
DX: O26.852 Spotting complicating pregnancy, second trimester (principal); Z3A.00 Weeks of gestation of pregnancy not specified
CPT/HCPCS: 76815

== ENCOUNTER 2024-11-17 09:46 | Outpatient (CLI) | payer BC, SELFPAY ==
[2024-11-17] VITALS (14 sets, daily range): BP systolic 137–156; BP diastolic 88–110; PULSE 80–96; RESP 18; TEMP 36.6; O2SAT 98–100; BMI 34.2
[2024-11-17 10:32] LABS: Hematocrit 39.7 % (37.0-47.0); Hemoglobin 13.8 g/dL (12.0-15.0); Immature Granulocyte Percent A 0.2 % (0-0.5); Lymphocytes Absolute Auto 1.96 K/mm3 (0.9-3.2); Mean Corpuscular HGB Conc 34.8 g/dl (32-36); Mean Corpuscular Hemoglobin 32.9 pg (26-34); Mean Corpuscular Volume 94.5 fl (80-100); Nucleated Red Blood Cells Absolute Auto 0.000 K/mm3 (0.0-0.012); Nucleated Red Blood Cells Perc 0.0 % (0.0-0.2); Platelet Count Result 175 k/mm3 (150-375); Red Blood Count 4.20 M/mm3 (4.2-5.4); White Blood Count 8.1 K/mm3 (4.5-10.0)
[2024-11-17 10:36] LABS: Add Urine Microscopic? YES; Appearance Urine Clear (Clear); Glucose Urine UA Negative (Negative); Leukocyte Esterase Ur Trace LEU/UL (Negative); Nitrate Urine Negative (Negative); Non Pathogenic Casts 0-2; Specific Grav Ur 1.005 (1.001-1.035)
[2024-11-17 10:42] LABS: Total Protein Urine Random 12 mg/dL; Ur Ttl Prot Creatinine Ratio 0.43 mg/mg (0-0.20)
[2024-11-17 10:52] LABS: Alanine Aminotransferase 19 U/L (6-35); Albumin Level 3.5 g/dL (3.5-5.1); Alkaline Phosphatase 116 U/L (38-126); Anion Gap 5 mmol/L (4-12); Aspartate Amino Transferase 27 U/L (14-36); Bilirubin,Total 0.5 mg/dL (0.2-1.3); Blood Urea Nitrogen 11 mg/dL (7-17); Calcium 8.7 mg/dL (8.4-10.2); Carbon Dioxide 22 mmol/L (22-30); Chloride 107 mmol/L (98-107); Estimated Glomerular Filt Rate > 60; Glucose 84 mg/dL (65-110); Potassium 3.9 mmol/L (3.4-5.0); Sodium 134 mmol/L (137-145); Total Protein 6.5 g/dL (6.3-8.2); Uric Acid 4.6 mg/dL (2.5-7.5)
--- OUTSIDE RECORDS SUMMARY | 2024-11-17 11:16 | XMS_ITS | Clinical Summary ---
Author Organization [facility] Address [address] [place] [phone] Phone Care Team Providers Care Swimming Pool Servicer Name Role Phone Unavailable Primary Care Provider Unavailabl e Encounters Date Type Department Care Team Description 10/07/2024 External Device Data STL ABSTRACTION Provider, Abstract 09/16/2024 External Device Data STL ABSTRACTION Provider, Abstract 09/16/2024 External Device Data STL ABSTRACTION Provider, Abstract 09/15/2024 External Device Data STL ABSTRACTION Provider, Abstract 09/01/2024 External Device Data STL ABSTRACTION Provider, Abstract 08/19/2024 External Device Data STL ABSTRACTION Provider, Abstract 08/18/2024 External Device Data STL ABSTRACTION Provider, Abstract 08/18/2024 External Device Data STL ABSTRACTION Provider, Abstract from Last 3 Months Social History Tobacco Use Types Packs/Day Years Used Date Smoking Tobacco: Never Assessed Comments Unknown Sex and Gender Information Value Date Recorded Sex Assigned at Not on file Legal Sex Female 8:33 AM WHALE FISHERMAN Gender Identity Not on file Sexual Orientation Not on file Plan of Treatment Health Maintenance Due Date Last Done Comments DTAP/TDAP/TD VACCINES (1 - Tdap) 08/08/2014 HEPATITIS B VACCINES (1 of 3 - 19+ 3-dose series) 09/2014 CERVICAL CANCER SCREENING 08/08/2016 HPV/Cotest (21-29) 08/08/2016 PAP SMEAR 08/08/2016 HPV VACCINES (1 - 3-dose SCDM series) 08/08/2022 INFLUENZA VACCINE (#1) 2024 02/22/2022 Insurance [facility] PREFERRED
--- OUTSIDE RECORDS SUMMARY | 2024-11-17 11:16 | XMS_ITS | Clinical Summary ---
Author Organization [facility] Address [address] [facility] [address] [place] [address] Phone Care Team Providers Care Insurance Policy Clerk Name Role Phone Lucero Ramos MD Primary [...] Comments Blood Pressure 118/72 02/22/2022 8:29 AM BUSINESS PLANNER Pulse 104 02/22/2022 8:29 AM BUSINESS PLANNER Temperature - - Respiratory Rate - - Oxygen Saturation - - Inhaled Oxygen Concentration - - Weight 73 kg (161 lb) 02/22/2022 8:29 AM BUSINESS PLANNER Height 162.6 cm (5' 4) 02/22/2022 8:29 AM BUSINESS PLANNER Body Mass Index 27.64 02/22/2022 8:29 AM BUSINESS PLANNER Plan of Treatment Health Maintenance Due Date Last Done Comments Cervical Cancer Screening 1995 Hepatitis C Screening 1995 DTaP/Tdap/Td Vaccine (1 - Tdap) 08/08/2006 Varicella Vaccines (1 of 2 - 13+ 2-dose series) 08/08/2008 Hepatitis B Screening 08/08/2013 HPV Vaccines (1 - 3-dose SCD M series) 08/08/2022 Depression Screening 02/22/2023 02/22/2022 Regular Well Visit/Exam 18-64 02/22/2023 02/22/2022 Covid-19 Vaccine (3 - 2024-2 6 season) 2024 06/21/2020, 05/31/2020 Influenza Vaccine (#1) 2024 02/22/2022 Pneumococcal vaccine <65 Aged Out No longer eligible based on patient's age to complete this topic Insurance [employer] ACCESS Care Teams Insurance Policy Clerk Relationship Specialty Start Date End Date Lucero Ramos MD PCP - General Family Practice 02/22/22
--- NOTE | 2024-11-17 11:57 | PC.NURSE ---
Dr Haines notified of BP and Lab results. Orders receivd.
[2024-11-17 21:50] LABS: Hematocrit 41.0 % (37.0-47.0); Hemoglobin 14.3 g/dL (12.0-15.0); Immature Granulocyte Percent A 0.2 % (0-0.5); Lymphocytes Absolute Auto 2.44 K/mm3 (0.9-3.2); Mean Corpuscular HGB Conc 34.9 g/dl (32-36); Mean Corpuscular Hemoglobin 32.9 pg (26-34); Mean Corpuscular Volume 94.5 fl (80-100); Nucleated Red Blood Cells Absolute Auto 0.000 K/mm3 (0.0-0.012); Nucleated Red Blood Cells Perc 0.0 % (0.0-0.2); Platelet Count Result 200 k/mm3 (150-375); Red Blood Count 4.34 M/mm3 (4.2-5.4); White Blood Count 8.2 K/mm3 (4.5-10.0)
[2024-11-18 02:02] VITALS: BP 125/88; PULSE 89; RESP 17; TEMP 36.1
--- NOTE | 2024-11-18 02:30 | PC.NURSE ---
Pt resting comfortably in bed. VSS, NST reactive and reassuring. Pt denies any TUTTLE, SOB, epigastric pain. +FM
[2024-11-18 07:07] VITALS: BP 128/91; PULSE 88; PULSE 94; O2SAT 99
[2024-11-18 07:16] VITALS: BP 126/89; PULSE 79
[2024-11-18 07:31] VITALS: BP 128/97; PULSE 75
--- NOTE | 2024-11-18 07:47 | PM.IMHP ---
H&P: HPI History of Present Illness Date/Time: 11/18/24 07:47 Chief Complaint: Elevated blood pressure Narrative: Patient is a 29-year-old 2 para 1 at 36-,1/7 weeks who was seen for her routine visit yesterday and noted to have elevated blood pressure. She was sent to Labor and delivery for a further evaluation and blood work was normal. Blood pressures remain elevated in the 130 to 140 over 90 to 110 range only 1 in the severe range. Patient without symptoms of PIH. Protein creatinine ratio is elevated. 24hour urine is in progress. If the 24 urine rules in for preeclampsia the plan is to proceed with a repeat today. has been uncomplicated to this point. labs A-positive, rubella immune, RPR negative, hepatitis-B surface antigen negative, HIV negative, group B strep performed yesterday and not returned. Review of Systems Review of Systems: not repeated day of surgery; patient states no changes in status PMFSH Past Medical History Medical History (Updated 11/18/24 @ 07:50 by Bridgette Haines MD) Healthy female adult Surgical History Surgical History (Updated 11/18/24 @ 07:51 by Bridgette Haines MD) S/P primary low transverse History of Family History Family History Mother Multiple sclerosis Social History Social History (Updated 01/13/22 @ 12:55 by Edy Hill MD) Smoking status: Never smoker Substance use: never Lack of Transportation: No Lack of Food: Never True Current Housing: I Have Housing Concerned About Future Housing: No Difficulty Paying Gas/Electric Bills: No Difficulty Paying for Meds: No Currently Unemployed: No Education: Master's Degree or Higher Difficulty w/ Childcare or Family Care: No Spiritual care concerns: No Meds Home Medications and Allergies Home Medications ?Medication ?Instructions ?Recorded ?Confirmed ?Type vit 24-iron amino acid 1 tablet PO DAILY 08/24/22 11/17/24 History chelat-folic acid 30 mg-975 mcg tablet Allergies Allergy/AdvReac Type Severity Reaction Status Date / Time No Known Allergies Allergy Verified 11/17/24 14:56 Vital Signs Vital Signs - 24 hr 11/17/24 10:15 11/17/24 10:31 11/17/24 10:45 Temperature Pulse Rate 92 86 92 Respiratory Rate Blood Pressure 144/105 H 140/102 H 142/100 H Pulse Oximetry Oxygen Delivery 11/17/24 11:00 11/17/24 11:30 11/17/24 13:32 Temperature Pulse Rate 85 80 Respiratory Rate Blood Pressure 151/110 H 143/93 H Pulse Oximetry Oxygen Delivery Room Air 11/17/24 15:40 11/17/24 18:07 11/17/24 21:09 Temperature Pulse Rate 96 92 Respiratory Rate Blood Pressure 142/88 H 146/107 H Pulse Oximetry 98 Oxygen Delivery 11/17/24 21:10 11/17/24 21:14 11/17/24 21:16 Temperature 97.9 F Pulse Rate 86 Respiratory Rate 18 Blood Pressure 156/110 H Pulse Oximetry 100 Oxygen Delivery 11/17/24 21:19 11/17/24 21:46 11/17/24 22:01 Temperature Pulse Rate 84 85 Respiratory Rate Blood Pressure 149/95 H 137/88 Pulse Oximetry 100 Oxygen Delivery 11/18/24 02:02 11/18/24 07:07 11/18/24 07:16 Temperature 97 F L Pulse Rate 89 94 79 Respiratory Rate 17 Blood Pressure 125/88 128/91 H 126/89 Pulse Oximetry 99 Oxygen Delivery 11/18/24 07:31 Temperature Pulse Rate 75 Respiratory Rate Blood Pressure 128/97 H Pulse Oximetry Oxygen Delivery Exam Const: General: healthy appearing and alert Orientation/consciousness: patient oriented x3 Resp: Effort & Inspection: normal respiratory effort GI: GI Palp: Yes Soft to palpation, No Tenderness to palpation present (GI) and Yes Other GI palpation findings present (Fundal height 36cm) : External Female Exam: normal external appearance Speculum Exam - Vagina: normal vaginal discharge Manual OB Exam: dilated 1 cm (11.5) and effaced 50% Neuro: General: patient oriented x3 H&P: Results Labs Labs: Short CBC 11/17/24 11/17/24 Range/Units 10:26 21:45 WBC 8.1 8.2 (4.5-10.0) K/mm3 Hgb 13.8 14.3 (12.0-15.0) g/dL Hct 39.7 41.0 (37.0-47.0) % Plt Count 175 200 (150-375) k/mm3 BMP 11/17/24 10:26 Sodium 134 L Potassium 3.9 Chloride 107 Carbon Dioxide 22 BUN 11 D Creatinine 0.63 L Glucose 84 Calcium 8.7 Liver Function 11/17/24 Range/Units 10:26 Total Bilirubin 0.5 (0.2-1.3) mg/dL AST 27 (14-36) U/L ALT 19 (6-35) U/L Alkaline Phosphatase 116 (38-126) U/L Albumin 3.5 (3.5-5.1) g/dL Urine 11/17/24 Range/Units 10:26 Urine Color Yellow (Yellow) Urine Appearance Clear (Clear) Urine pH 7.0 (5.0-9.0) Ur Specific [place] 1.005 (1.001-1.035) Urine Protein Negative (Negative) mg/dL Urine Glucose (UA) Negative (Negative) mg/dL Assessment and Plan Assessment and plan (1) 36 weeks gestation of : Code(s): Z3A.36 - 36 weeks gestation of Status: Acute Assessment and Plan: 03/10 (2) induced hypertension: Code(s): O13.9 - Gestational [-induced] hypertension without significant proteinuria, unspecified trimester Status: Acute Assessment and Plan: 24 urine in progress to determine if preeclamptic. If preeclamptic the plan was for delivery this evening by section. (3) History of : Code(s): Z98.891 - History of uterine scar from previous surgery Status: Acute Assessment and Plan: Patient requests repeat section.
[2024-11-18 10:51] LABS: Total Protein Urine Random 10 mg/dL
[2024-11-18 10:55] LABS: Total Protein Urine 24 Hr 200 mg/24hr (28-141); Total Volume 24 Hour Urine 2000 ml
[2024-11-18 11:43] LABS: Creatinine Clearance Urine 103.1 ml/min (75-125); Serum Creat 0.63
--- NOTE | 2024-11-18 11:50 | PC.NURSE ---
Dr. Haines paged at [phone]. Returned page at [phone]. Notified of 24h urine protein 200 and creatinine clearance 103.1. Order received for pt. to dc home. Pt. to be on bedrest and cannot be caregiver of her living child. Pt. to get a BP cuff and check BP QID and keep a log. Pt. to call and notify the office if systolic BP greater than 150 and diastolic greater than 100. Pt. to have 2XW NSTs with today being 1 of 2 for this week.
--- NOTE | 2024-11-18 12:29 | PC.NURSE ---
Unable to document in worklist IV assessment. IV removed from left wrist at 1220.
[2024-11-18 12:52] LABS: Syphilis IgG/IgM Antibody Non-Reactive (Nonreactive)
== END 2024-11-18 12:29 | disposition home or self-care (01) ==
LOC: ANHOBOP 09:51 → ANHOBPP 11-18 12:08
PROVIDERS: PCP Obstetrics & Gynecology Gynecology; Visit Provider Obstetrics & Gynecology Gynecology
DX: O13.9 Gestational [pregnancy-induced] hypertension without significant proteinuria, unspecified trimester (principal); Z3A.00 Weeks of gestation of pregnancy not specified
CPT/HCPCS: 36415; 59025; 80053; 81001; 81050; 82570; 82575; 84156; 84550; 85025; 86593; 86850; 86900; 86901; 99199

== ENCOUNTER 2024-11-22 07:47 | Observation (INO) | payer BC, SELFPAY ==
[2024-11-22] VITALS (28 sets, daily range): BP systolic 134–157; BP diastolic 83–109; PULSE 85–111
--- OUTSIDE RECORDS SUMMARY | 2024-11-22 07:50 | XMS_ITS | Clinical Summary ---
Author Organization [facility] Address [address] [facility] [facility] [address] [place] [address] Phone Care Team Providers Care Extrusion Press Supervisor Name Role Phone Lucero Ramos MD Primary [...] Comments Blood Pressure 118/72 02/22/2022 8:29 AM WORM PACKER Pulse 104 02/22/2022 8:29 AM WORM PACKER Temperature - - Respiratory Rate - - Oxygen Saturation - - Inhaled Oxygen Concentration - - Weight 73 kg (161 lb) 02/22/2022 8:29 AM WORM PACKER Height 162.6 cm (5' 4) 02/22/2022 8:29 AM WORM PACKER Body Mass Index 27.64 02/22/2022 8:29 AM WORM PACKER Plan of Treatment Health Maintenance Due Date [...] patient's age to complete this topic Insurance [employer] ACCESS Care Teams Extrusion Press Supervisor Relationship Specialty Start Date End Date Lucero Ramos MD PCP - General Family Practice 02/22/22
[2024-11-22 08:15] LABS: Hematocrit 40.3 % (37.0-47.0); Hemoglobin 13.8 g/dL (12.0-15.0); Immature Granulocyte Percent A 0.3 % (0-0.5); Lymphocytes Absolute Auto 2.12 K/mm3 (0.9-3.2); Mean Corpuscular HGB Conc 34.2 g/dl (32-36); Mean Corpuscular Hemoglobin 32.6 pg (26-34); Mean Corpuscular Volume 95.3 fl (80-100); Nucleated Red Blood Cells Absolute Auto 0.000 K/mm3 (0.0-0.012); Nucleated Red Blood Cells Perc 0.0 % (0.0-0.2); Platelet Count Result 171 k/mm3 (150-375); Red Blood Count 4.23 M/mm3 (4.2-5.4); White Blood Count 7.8 K/mm3 (4.5-10.0)
[2024-11-22 08:31] LABS: Alanine Aminotransferase 22 U/L (6-35); Albumin Level 3.4 g/dL (3.5-5.1); Alkaline Phosphatase 131 U/L (38-126); Anion Gap 6 mmol/L (4-12); Aspartate Amino Transferase 27 U/L (14-36); Bilirubin,Total 0.5 mg/dL (0.2-1.3); Blood Urea Nitrogen 9 mg/dL (7-17); Calcium 8.5 mg/dL (8.4-10.2); Carbon Dioxide 20 mmol/L (22-30); Chloride 107 mmol/L (98-107); Estimated Glomerular Filt Rate > 60; Glucose 84 mg/dL (65-110); Potassium 4.0 mmol/L (3.4-5.0); Sodium 133 mmol/L (137-145); Total Protein 6.5 g/dL (6.3-8.2); Uric Acid 4.3 mg/dL (2.5-7.5)
[2024-11-22 08:35] LABS: Add Urine Microscopic? YES; Appearance Urine Cloudy (Clear); Glucose Urine UA Negative (Negative); Leukocyte Esterase Ur 2+ LEU/UL (Negative); Need Manual Microscopic Reviewed; Nitrate Urine Negative (Negative); Specific Grav Ur 1.016 (1.001-1.035)
[2024-11-22 09:58] LABS: Total Protein Urine Random 11 mg/dL; Ur Ttl Prot Creatinine Ratio 0.08 mg/mg (0-0.20)
[2024-11-22] MEDS: CEPHALEXIN 500 MG CAPSULE PO (10:19)
--- NOTE | 2024-11-27 07:37 | P.PNOB_ITS ---
OB - Triage/Final Diagnosis Visit Information Reason for evaluation: other (gestational hypertension) Comments/Additional reasons for admission: I have assessed the risk for this patient, Janet Morales, and determined that she would benefit from observation care. Evaluation Laboratory results: Laboratory Tests 11/22/24 08:01 WBC 7.8 RBC 4.23 Hgb 13.8 Hct 40.3 MCV 95.3 MCH 32.6 MCHC 34.2 RDW 12.4 Plt Count 171 MPV 10.9 H Immature Gran % (Auto) 0.3 Neut % (Auto) 63.1 Lymph % (Auto) 27.3 [place] % (Auto) 5.5 Eos % (Auto) 3.2 Baso % (Auto) 0.6 Lymph # (Auto) 2.12 [place] # (Auto) 0.4 Eos # (Auto) 0.3 Baso # (Auto) 0.1 Abs Immat Gran (auto) 0.02 Absolute Neuts (auto) 4.9 Absolute Nucleated RBC 0.000 Nucleated RBC % 0.0 Sodium 133 L Potassium 4.0 Chloride 107 Carbon Dioxide 20 L Anion Gap 6 BUN 9 Creatinine 0.57 L Estim Creat Clear Calc Not Reportable Estimated GFR > 60 Glucose 84 Uric Acid 4.3 Calcium 8.5 Total Bilirubin 0.5 AST 27 ALT 22 Alkaline Phosphatase 131 H Total Protein 6.5 Albumin 3.4 L Urine Color Yellow Urine Appearance Cloudy H Urine pH 6.5 Ur Specific [place] 1.016 Urine Protein Trace Urine Glucose (UA) Negative Urine Ketones Negative Ur Blood (Man) 2+ H Urine Nitrate Negative Urine Bilirubin Negative Urine Urobilinogen 0.2 Add Ur Microanalysis Reviewed Leukocyte Esterase Rfl 2+ H Urine RBC 3-5 H Urine WBC 51-100 H Ur Squamous Epith Cells Many H Urine Bacteria 4+ H Urine Casts 3-5 U Random Total Protein 11 Urine Creatinine 145.2 Protein/Creat Ratio 2 0.08
== END 2024-11-22 14:55 | disposition home or self-care (01) ==
LOC: ANHOBOP 07:49 → ANHLDR 07:50 → ANHOBOP 13:26 → ANHLDR 13:26
PROVIDERS: Admitting Provider Obstetrics & Gynecology Gynecology; Visit Provider Obstetrics & Gynecology Gynecology
DX: O13.3 Gestational [pregnancy-induced] hypertension without significant proteinuria, third trimester (principal); Z3A.36 36 weeks gestation of pregnancy
CPT/HCPCS: 36415; 59025; 80053; 81001; 82570; 84156; 84550; 85025; A9270; G0378; G0379

== ENCOUNTER 2024-11-25 15:23 | Outpatient (CLI) | payer BC, SELFPAY ==
--- OUTSIDE RECORDS SUMMARY | 2024-11-25 15:27 | XMS_ITS | Clinical Summary ---
Author Organization [facility] Address [address] [place] [phone] Phone Care Team Providers Care Customer Quality Engineer Name Role Phone Unavailable Primary Care Provider [...] on file Legal Sex Female 8:33 AM CLICKER OPERATOR Gender Identity Not on file Sexual Orientation Not on file Plan of Treatment Health Maintenance Due Date Last Done Comments DTAP/TDAP/TD VACCINES (1 - Tdap) 08/08/2014 HEPATITIS B VACCINES (1 of 3 - 19+ 3-dose series) 09/2014 CERVICAL CANCER SCREENING 08/08/2016 HPV/Cotest (21-29) 08/08/2016 PAP SMEAR 08/08/2016 HPV VACCINES (1 - 3-dose SCDM series) 08/08/2022 INFLUENZA VACCINE (#1) 2024 02/22/2022 Insurance [employer] [facility]
--- OUTSIDE RECORDS SUMMARY | 2024-11-25 15:27 | XMS_ITS | Clinical Summary ---
Author Organization [facility] Address [address] [facility] [address] [place] [address] Phone Care Team Providers Care Concierge Receptionist Name Role Phone Lucero Ramos MD Primary [...] Comments Blood Pressure 118/72 02/22/2022 8:29 AM DATA CONSULTANT Pulse 104 02/22/2022 8:29 AM DATA CONSULTANT Temperature - - Respiratory Rate - - Oxygen Saturation - - Inhaled Oxygen Concentration - - Weight 73 kg (161 lb) 02/22/2022 8:29 AM DATA CONSULTANT Height 162.6 cm (5' 4) 02/22/2022 8:29 AM DATA CONSULTANT Body Mass Index 27.64 02/22/2022 8:29 AM DATA CONSULTANT Plan of Treatment Health Maintenance Due [...] patient's age to complete this topic Insurance [employer] ACCESS Care Teams Concierge Receptionist Relationship Specialty Start Date End Date Lucero Ramos MD PCP - General Family Practice 02/22/22
[2024-11-25 15:45] VITALS: BP 141/98; PULSE 93
[2024-11-25 16:01] VITALS: BP 138/90; PULSE 93
[2024-11-25 16:01] LABS: Hematocrit 39.8 % (37.0-47.0); Hemoglobin 13.7 g/dL (12.0-15.0); Immature Granulocyte Percent A 0.3 % (0-0.5); Lymphocytes Absolute Auto 1.95 K/mm3 (0.9-3.2); Mean Corpuscular HGB Conc 34.4 g/dl (32-36); Mean Corpuscular Hemoglobin 32.7 pg (26-34); Mean Corpuscular Volume 95.0 fl (80-100); Nucleated Red Blood Cells Absolute Auto 0.000 K/mm3 (0.0-0.012); Nucleated Red Blood Cells Perc 0.0 % (0.0-0.2); Platelet Count Result 199 k/mm3 (150-375); Red Blood Count 4.19 M/mm3 (4.2-5.4); White Blood Count 7.9 K/mm3 (4.5-10.0)
[2024-11-25 16:09] LABS: Total Protein Urine Random 15 mg/dL; Ur Ttl Prot Creatinine Ratio 0.34 mg/mg (0-0.20)
[2024-11-25 16:11] LABS: Alanine Aminotransferase 19 U/L (6-35); Albumin Level 3.6 g/dL (3.5-5.1); Alkaline Phosphatase 125 U/L (38-126); Anion Gap 7 mmol/L (4-12); Aspartate Amino Transferase 28 U/L (14-36); Bilirubin,Total 0.3 mg/dL (0.2-1.3); Blood Urea Nitrogen 14 mg/dL (7-17); Calcium 8.9 mg/dL (8.4-10.2); Carbon Dioxide 21 mmol/L (22-30); Chloride 105 mmol/L (98-107); Estimated Glomerular Filt Rate > 60; Glucose 85 mg/dL (65-110); Potassium 3.9 mmol/L (3.4-5.0); Sodium 133 mmol/L (137-145); Total Protein 6.7 g/dL (6.3-8.2); Uric Acid 4.9 mg/dL (2.5-7.5)
[2024-11-25 16:15] VITALS: BP 137/94; PULSE 103
[2024-11-25 16:20] LABS: Add Urine Microscopic? YES; Appearance Urine Cloudy (Clear); Glucose Urine UA Negative (Negative); Leukocyte Esterase Ur 3+ LEU/UL (Negative); Need Manual Microscopic Reviewed; Nitrate Urine Negative (Negative); Specific Grav Ur 1.007 (1.001-1.035)
[2024-11-25 16:31] VITALS: BP 133/94; PULSE 92
--- NOTE | 2024-11-25 16:46 | PC.NURSE ---
1627- Called Dr. Haines to report lab results and vital signs. notified of elevated blood pressures. Order received to [place] pt. home with 24 hour urine.
[2024-11-25 16:48] VITALS: BP 141/98; PULSE 93
[2024-11-25 16:59] VITALS: BP 141/98; PULSE 93
== END 2024-11-25 16:45 | disposition home or self-care (01) ==
LOC: ANHOBOP 15:26 → ANHOBPP 15:27
PROVIDERS: Visit Provider Obstetrics & Gynecology Gynecology
DX: O13.9 Gestational [pregnancy-induced] hypertension without significant proteinuria, unspecified trimester (principal); Z3A.00 Weeks of gestation of pregnancy not specified
CPT/HCPCS: 36415; 59025; 80053; 81001; 82570; 84156; 84550; 85025; 99199

== ENCOUNTER 2024-11-26 18:28 | Outpatient (NON) | payer BC, SELFPAY ==
[2024-11-26 18:28] VITALS: BMI 34.2
--- OUTSIDE RECORDS SUMMARY | 2024-11-26 19:30 | XMS_ITS | Clinical Summary ---
Author Organization [facility] Address [address] [facility] [address] [place] [address] Phone Care Team Providers Care Melangeur Operator Name Role Phone Lucero Ramos MD [...] Comments Blood Pressure 118/72 02/22/2022 8:29 AM SHAKER OUT Pulse 104 02/22/2022 8:29 AM SHAKER OUT Temperature - - Respiratory Rate - - Oxygen Saturation - - Inhaled Oxygen Concentration - - Weight 73 kg (161 lb) 02/22/2022 8:29 AM SHAKER OUT Height 162.6 cm (5' 4) 02/22/2022 8:29 AM SHAKER OUT Body Mass Index 27.64 02/22/2022 8:29 AM SHAKER OUT Plan of Treatment Health Maintenance Due Date [...] patient's age to complete this topic Insurance [employer] ACCESS Care Teams Melangeur Operator Relationship Specialty Start Date End Date Lucero Ramos MD PCP - General Family Practice 02/22/22
--- OUTSIDE RECORDS SUMMARY | 2024-11-26 19:30 | XMS_ITS | Clinical Summary ---
Author Organization [facility] Address [address] [place] [phone] Phone Care Team Providers Care Financial Compliance Officer Name Role Phone Unavailable Primary Care Provider [...] on file Legal Sex Female 8:33 AM LATHE SET UP PERSON Gender Identity Not on file Sexual Orientation [...] (#1) 2024 02/22/2022 Insurance [employer] [facility]
[2024-11-26 20:00] LABS: Total Volume 24 Hour Urine 1400 ml
[2024-11-26 20:08] LABS: Creatinine Clearance Urine 126.5 ml/min (75-125); Serum Creat 0.74; Total Protein Urine 24 Hr 252 mg/24hr (28-141); Total Protein Urine Random 18 mg/dL
== END 2024-11-26 18:29 | disposition home or self-care (01) ==
LOC: ANHOBOP 19:28
PROVIDERS: Visit Provider Obstetrics & Gynecology Gynecology
DX: Z34.90 Encounter for supervision of normal pregnancy, unspecified, unspecified trimester (principal); Z3A.00 Weeks of gestation of pregnancy not specified
CPT/HCPCS: 81050; 82575; 84156

== ENCOUNTER 2024-11-27 08:50 | Outpatient (RCR) | payer BC, SELFPAY ==
[2024-11-20 09:12] VITALS: BP 143/98; PULSE 99
[2024-11-27 09:26] VITALS: BP 132/88; PULSE 48
== END 2024-12-12 09:29 | disposition other institution (70) ==
LOC: ANHOBOP 08:50
PROVIDERS: Visit Provider Obstetrics & Gynecology Gynecology
DX: O16.3 Unspecified maternal hypertension, third trimester (principal); Z3A.36 36 weeks gestation of pregnancy
CPT/HCPCS: 59025

== ENCOUNTER 2024-12-07 12:12 | Outpatient (CLI) | payer BC, SELFPAY ==
[2024-12-07 13:05] LABS: Hematocrit 38.3 % (37.0-47.0); Hemoglobin 13.3 g/dL (12.0-15.0); Immature Granulocyte Percent A 0.2 % (0-0.5); Lymphocytes Absolute Auto 2.27 K/mm3 (0.9-3.2); Mean Corpuscular HGB Conc 34.7 g/dl (32-36); Mean Corpuscular Hemoglobin 32.9 pg (26-34); Mean Corpuscular Volume 94.8 fl (80-100); Nucleated Red Blood Cells Absolute Auto 0.000 K/mm3 (0.0-0.012); Nucleated Red Blood Cells Perc 0.0 % (0.0-0.2); Platelet Count Result 178 k/mm3 (150-375); Red Blood Count 4.04 M/mm3 (4.2-5.4); White Blood Count 8.6 K/mm3 (4.5-10.0)
--- OUTSIDE RECORDS SUMMARY | 2024-12-07 13:17 | XMS_ITS | Clinical Summary ---
Author Organization [facility] Address [address] [place] [phone] Phone Care Team Providers Care Fishing Tool Supervisor Name Role Phone Unavailable Primary Care Provider Unavailabl e Encounters Date Type Department Care Team Description 12/01/2024 External Device Data STL ABSTRACTION Provider, Abstract 10/07/2024 External Device Data STL ABSTRACTION Provider, [...] on file Legal Sex Female 8:33 AM TECHNICAL ILLUSTRATIONS MAP INKER Gender Identity Not on file Sexual Orientation [...] (#1) 2024 02/22/2022 Insurance [employer] [facility]
--- OUTSIDE RECORDS SUMMARY | 2024-12-07 13:17 | XMS_ITS | Clinical Summary ---
Author Organization [facility] Address [address] [facility] [facility] [address] [place] [phone] Phone Care Team Providers Care Personal Protection Specialist Name Role Phone Lucero Ramos MD Primary [...] Comments Blood Pressure 118/72 02/22/2022 8:29 AM BAKERY MANAGER Pulse 104 02/22/2022 8:29 AM BAKERY MANAGER Temperature - - Respiratory Rate - - Oxygen Saturation - - Inhaled Oxygen Concentration - - Weight 73 kg (161 lb) 02/22/2022 8:29 AM BAKERY MANAGER Height 162.6 cm (5' 4) 02/22/2022 8:29 AM BAKERY MANAGER Body Mass Index 27.64 02/22/2022 8:29 AM BAKERY MANAGER Plan of Treatment Health Maintenance Due Date [...] patient's age to complete this topic Insurance [employer] Care Teams Personal Protection Specialist Relationship Specialty Start Date End Date Lucero Ramos MD PCP - General Family Practice 02/22/22
[2024-12-07 13:53] LABS: Syphilis IgG/IgM Antibody Non-Reactive (Nonreactive)
== END 2024-12-07 12:13 | disposition home or self-care (01) ==
LOC: ANHLAB 12:14
PROVIDERS: Visit Provider Obstetrics & Gynecology Gynecology
DX: Z34.93 Encounter for supervision of normal pregnancy, unspecified, third trimester (principal); Z3A.00 Weeks of gestation of pregnancy not specified
CPT/HCPCS: 36415; 85025; 86593; 86850; 86900; 86901

== ENCOUNTER 2024-12-08 05:32 | Inpatient (IN) | payer BC, SELFPAY ==
[2024-12-08] VITALS (54 sets, daily range): BP systolic 123–163; BP diastolic 82–138; PULSE 56–103; RESP 12–19; TEMP 36.1–36.9; O2SAT 96–100; BMI 34.0
--- OUTSIDE RECORDS SUMMARY | 2024-12-08 01:01 | XMS_ITS | Clinical Summary ---
Author Organization [facility] Address [address] [place] [phone] Phone Care Team Providers Care Marine Photographer Name Role Phone Unavailable Primary Care Provider [...] on file Legal Sex Female 8:33 AM PLANT WORKER Gender Identity Not on file Sexual Orientation [...] (#1) 2024 02/22/2022 Insurance BCBS BLUE [facility]
--- OUTSIDE RECORDS SUMMARY | 2024-12-08 01:01 | XMS_ITS | Clinical Summary ---
Author Organization [facility] Address [address] [facility] [address] [place] [id number] Phone Care Team Providers Care Head Start Teacher Name Role Phone Lucero Ramos MD Primary [...] Comments Blood Pressure 118/72 02/22/2022 8:29 AM BOAT BUILDER Pulse 104 02/22/2022 8:29 AM BOAT BUILDER Temperature - - Respiratory Rate - - Oxygen Saturation - - Inhaled Oxygen Concentration - - Weight 73 kg (161 lb) 02/22/2022 8:29 AM BOAT BUILDER Height 162.6 cm (5' 4) 02/22/2022 8:29 AM BOAT BUILDER Body Mass Index 27.64 02/22/2022 8:29 AM BOAT BUILDER Plan of Treatment Health Maintenance Due Date [...] patient's age to complete this topic Insurance [employer] Address: [address] [place] [address] [employer] Address: [address] [place] [address] Care Teams Head Start Teacher Relationship Specialty Start Date End Date Lucero Ramos MD PCP - General Family Practice 02/22/22
[2024-12-08] MEDS: LACTATED RINGERS 1,000 ML 125 ML IV CONT ×2 (06:37→07:08)
[2024-12-08] MEDS: ACETAMINOPHEN 500 MG TABLET 1000 MG PO ×4 (06:39→23:35)
[2024-12-08] MEDS: ceFAZolin 2 GM in SODIUM CHLORIDE 0.9% IV 50 ML 100 ML IVPB (06:39)
[2024-12-08] MEDS: FAMOTIDINE 20 MG/2 ML VIAL IV PUSH (06:40)
[2024-12-08] MEDS: ONDANSETRON INJ 4 MG/2 ML VIAL IV PUSH ×2 (06:40→11:45)
--- NOTE | 2024-12-08 06:44 | WPDANESEPPF ---
Anes - Initial Pre Proc Eval Procedure: Operation Date: 12/08/24 07:30 Proposed Procedures p Repeat Section - Bridgette Haines MD Date/Time: 12/08/24 06:44 Surgeon: Bridgette Haines MD Pre Op Diagnosis: Repeat C/S Patient Data Age: 29 Gender: F Height: Weight: Last Vital Signs Pulse 103 H 12/08/24 06:31 BP 153/96 H 12/08/24 06:31 Allergies Allergy/AdvReac Type Severity Reaction Status Date / Time No Known Allergies Allergy Verified 11/20/24 09:21 Home Medications ?Medication ?Instructions ?Recorded ?Confirmed ?Type vit 24-iron amino acid 1 tablet PO DAILY 08/24/22 11/20/24 History chelat-folic acid 30 mg-975 mcg tablet cephalexin 500 mg capsule 500 mg PO Q8H #8 caps 11/22/24 Rx nifedipine 60 mg tablet,extended 60 mg PO .every 12 hours #60 tabs 11/22/24 Rx release 24 hr (Procardia XL) Patient hx anesthesia problems: none Family hx anesthesia problems: none Results Review: All pre-operative results and documents have been reviewed as part of the pre-operative evaluation. [facility] Past Medical History Medical History (Updated 12/08/24 @ 06:57 by Carlos Eduardo Flores DO) induced hypertension Healthy female adult Surgical History Surgical History (Updated 11/18/24 @ 07:51 by Bridgette Haines MD) S/P primary low transverse History of Family History Family History Mother Multiple sclerosis Social History Social History (Updated 01/13/22 @ 12:55 by Edy Hill MD) Smoking status: Never smoker Substance use: never Lack of Transportation: No Lack of Food: Never True Current Housing: I Have Housing Concerned About Future Housing: No Difficulty Paying Gas/Electric Bills: No Difficulty Paying for Meds: No Currently Unemployed: No Education: Master's Degree or Higher Difficulty w/ Childcare or Family Care: No Spiritual care concerns: No Anes - Eval Final PreProcedure Day of Procedure 12/08/24 06:44 Patient weight: obese Heart: regular rate and rhythm Lungs: clear to auscultation and normal air movement Airway: Mallampati scale class II Neurological: alert and oriented Last oral intake: >/= 8 hours ASA classification: III Emergent: no Anesthetic plan: proceed Anesthesia type and monitoring: regional spinal and standard monitoring Results Review: All pre-operative results and documents have been reviewed as part of the pre-operative evaluation. Informed Consent: The patient's anesthetic plan and its attendant risks and benefits were discussed with the patient/family/POA. Questions were solicited and answers provided to the satisfaction of the patient/family/POA.
--- NOTE | 2024-12-08 06:46 | LDADM ---
This patient, Janet Morales, was admitted to Labor/Delivery/Recovery 120 on 12/08/24 at 05:32. Plans for section, pain management and were discussed with patient. Patient/family oriented to hospital policies and general routines including ID bracelet, bed and alarms, visiting hours, pain management, procedures, bathroom and other care routines, personal items, smoking policy, room service/diet and guest tray routines, security routines, and visiting hours. Patient/Family are encouraged to report perceived risks to care and to ask questions if they do not understand what they are told or what they should do. See OBIX for further documentation.
--- NOTE | 2024-12-08 07:13 | WPDHPUPDATE1 ---
History and Physical Update Update Date/Time: 12/08/24 07:13 History and Physical has been reviewed, including an updated exam of the patient. There are NO changes in the patient's condition. Risks, benefits, and alternatives have been discussed and questions answered. Patient agrees to proceed with procedure.
--- NOTE | 2024-12-08 07:13 | PM.IMHP ---
H&P: HPI History of Present Illness Date/Time: 12/08/24 07:13 Chief Complaint: Prior Narrative: The patient is a 29-year-old 2 para 1 at 39 weeks presenting for repeat section. The patient's has been complicated by gestational hypertension. Blood pressures have been controlled on Procardia XL 60mg twice daily. 24 hour urine and labs have been stable. The patient denies PIH symptoms The patient declines trial of labor. labs A-positive, rubella immune, RPR negative, HIV negative, hepatitis-B surface antigen negative, group B strep negative. Review of Systems Review of Systems: not repeated day of surgery; patient states no changes in status [facility] Past Medical History Medical History (Updated 12/08/24 @ 07:17 by Brigdette Haines MD) induced hypertension Surgical History Surgical History (Updated 12/08/24 @ 07:16 by Bridgette Haines MD) S/P primary low transverse 2019 7lb female failure to progress Family History Family History Mother Multiple sclerosis Social History Social History (Updated 01/13/22 @ 12:55 by Edy Hill MD) Smoking status: Never smoker Substance use: never Lack of Transportation: No Lack of Food: Sometimes True Current Housing: I Have Housing Concerned About Future Housing: No Difficulty Paying Gas/Electric Bills: No Difficulty Paying for Meds: No Currently Unemployed: No Education: Master's Degree or Higher Difficulty w/ Childcare or Family Care: No Spiritual care concerns: No Meds Home Medications and Allergies Home Medications ?Medication ?Instructions ?Recorded ?Confirmed ?Type vit 24-iron amino acid 1 tablet PO DAILY 08/24/22 12/08/24 History chelat-folic acid 30 mg-975 mcg tablet nifedipine 60 mg tablet,extended 60 mg PO .every 12 hours #60 tabs 11/22/24 12/08/24 Rx release 24 hr (Procardia XL) Allergies Allergy/AdvReac Type Severity Reaction Status Date / Time No Known Allergies Allergy Verified 12/08/24 07:05 Vital Signs Vital Signs - 24 hr 12/08/24 06:19 12/08/24 06:31 12/08/24 06:46 Pulse Rate 97 103 H Blood Pressure 152/100 H 153/96 H Oxygen Delivery Room Air Exam Const: General: healthy appearing and alert Orientation/consciousness: patient oriented x3 Resp: Effort & Inspection: normal respiratory effort GI: Inspection: other (Gravid) GI Palp: Yes Soft to palpation, No Tenderness to palpation present (GI) and Yes Other GI palpation findings present (Fundal height 37 cm) Auscultation: other ( heart tones category 1) Neuro: General: patient oriented x3 Assessment and Plan Assessment and plan (1) 39 weeks gestation of : Code(s): Z3A.39 - 39 weeks gestation of Status: Acute (2) History of : Code(s): Z98.891 - History of uterine scar from previous surgery Status: Acute Assessment and Plan: Plan to proceed with repeat section (3) Gestational hypertension: Code(s): O13.9 - Gestational [-induced] hypertension without significant proteinuria, unspecified trimester Status: Acute
--- NOTE | 2024-12-08 08:03 | S_PTH ---
PATIENT: Janet Morales V LOC: ANHOB2 U#:[id number] AGE/SX: 29/F ROOM: 287 RE12/08/[address]: Bridgette Haines MD : 1995 BED: 00 DIS: 12/10/2024 SPEC #: [id number] RECD: 12/08/24 09:29 STATUS: TEZ REVanessa #: [id number] KHALIF: 12/08/24 08:[address]: Bridgette Haines DEPT: [facility] RECD BY: Renee Avila ENTERED: 12/08/24 09:30 SP TYPE: Surgical OTHR DR: UNKNOWN,DOCTOR Tissues: A - Placenta Procedures: Hematoxylin and Eosin Stain Gross and Microscopic Level 5
--- NOTE | 2024-12-08 08:28 | P.OP_ITS ---
Procedure Note - Detailed Date of Procedure 12/08/24 Pre-op Diagnosis Intrauterine at 39 weeks Gestational hypertension Previous section Post-op Diagnosis Same Procedure Performed Repeat low-transverse section Surgeon Bridgette Haines MD Anesthesia Spinal Findings There is significant scar tissue at all layers except the bladder flap. Normal- appearing tubes, ovaries, and uterus. 7lb 7oz infant with ambiguous genitalia. Description of Procedure The patient is taken to the operating room and placed under anesthesia in the dorsal supine position with a leftward tilt. She was prepped and draped in the usual sterile fashion. Once anesthesia was deemed adequate, a Pfannenstiel skin incision made with a scalpel and carried down to the underlying layer of fascia. The fascia very dense and the fascial incision was extended with Bovie cautery. The rectus muscles are densely adherent in the midline. The scalpel was used to cut through the scar tissue in the midline. The peritoneum was then tented and entered with Metzenbaum scissors. The incision was extended with blunt traction with difficulty due to the tight scar tissue. The upper right rectus muscle is cauterized to approximately 1/3 of the body of the muscle to allow for additional room. The bladder blade is placed. The vesicouterine peritoneum was tented and entered with Metzenbaum scissors. The incision was extended laterally using Metzenbaum and the bladder flap was created digitally. The bladder blade was replaced. The lower uterine segment was incised in a transverse fashion with the scalpel and extended laterally using blunt traction. The 's head is brought into the incision and due to difficulties delivering, the kiwi vacuum is placed and the infant delivered on the 1st attempt. The delayed cord clamping was performed and then the cord clamped and cut. The was handed to the waiting pediatric nurse. The placenta was removed using manual traction after cord gases and cord blood were drawn. The uterus was exteriorized and cleared of all clots and debris. The uterine incision was then closed using 0 Monocryl in a running locked fashion with the same suture used to imbricate 1 additional suture was required at the left angle. Hemostasis was obtained and the cul-de-sac is irrigated. The uterus was returned to the abdomen. The gutters are irrigated. The incision was again inspected noted to be hemostatic. The fascia was then closed using 0 Vicryl in a running fashion. Subcutaneous tissues were irrigated and made hemostatic using Bovie cautery. Skin incision was closed using 4-0 Vicryl in a subcuticula r fashion. Dermaflex was placed over the incision. Sponge, needle, and instrument counts are correct per the OR staff. The patient was taken to recovery in stable condition. Estimated Blood Loss 385 Drains Yes (Goode catheter) Packing No Pathology Yes (Placenta) Complications No immediate complications Condition Stable Disposition Floor
--- NOTE | 2024-12-08 08:34 | PM.OBDSVD ---
DS: Admitting Diagnosis Discharge Date 12/10/24 Admitting Diagnosis Intrauterine at 39 weeks Gestational hypertension Previous section DS: Discharge Diagnosis Discharge Diagnosis (1) S/P primary low transverse : Code(s): Z98.891 - History of uterine scar from previous surgery Status: Acute (2) Gestational hypertension: Code(s): O13.9 - Gestational [-induced] hypertension without significant proteinuria, unspecified trimester Status: Acute OB - DS: Summary OB Procedures : NST, PIH Mgmt and Ultrasound OB Procedures Intrapartum: low cervical, transverse OB Procedures: : None Peripartum Data Procedures: Procedures Operation Date: 12/08/24 07:30 <No data on this case meets the specified criteria> Time Spent with Patient Time attestation: Total time spent providing and/or coordinating discharge services: Discharge Plan Discharge Attending physician on discharge: Bridgette Haines Discharging Clinician: Bridgette Haines Anticipated Discharge Date/Time: 12/11/24 08:35 Patient Disposition: Home Activity: may shower, may drive after 2 weeks and pelvic rest Diet: regular Wound Care Instructions: incision open to air Patient Instructions: Antibiotic Form Patient Language: Qatari Stand Alone Forms: General Discharge Information Follow-up/Referrals: Bridgette Haines MD [Physician, [employer]] - 1 Week Referral Note: And 6 week Discharge Medications: New labetalol 100 mg Tablet 100 mg PO Q12HR Qty: 60 1RF Continued PNV no.48-kfah-pxpaf acid 30-975 mg-mcg Tablet 1 tablet PO DAILY nifedipine [Procardia XL] 60 mg tablet extended release 24hr 60 mg PO .every 12 hours Qty: 60 0RF Date of admission: 12/08/24 05:32 Primary Care Provider: UNKNOWN,DOCTOR Admitting Provider: Bridgette Haines Attending physician on admission: Bridgette Haines Condition: Stable
--- NOTE | 2024-12-08 10:50 | OBPPTRN ---
Patient transferred to post room #287 via stretcher. Support person present. Oriented to unit, room, information board, rooming in, admission packet and security measures. Patient verbalizes understanding.
[2024-12-08] MEDS: OXYTOCIN 30 UNITS/NS 500 ML 30 UNITS/500 ML BAG 125 UNITS IV CONT (10:55)
--- NOTE | 2024-12-08 11:01 | PC.NURSE ---
Trevor used during section. Suction on at 08:00:21. Suction off at 08:00:48.
--- NOTE | 2024-12-08 11:30 | PC.NURSE ---
Patient set up with a breast pump due to transfer. Mother was shown proper sizing and placement of flanges, pump settings, and cleaning of pump parts. Recommended 15 minutes of pumping both breasts simultaneously. Patient is aware that pumping should not hurt. She is encouraged to use the highest comfortable suction setting, gradually increasing the level as she pumps. Patient provided with a basin,bottle brush, and soap for cleaning parts between uses. Breast milk storage guidelines given. Pumping log and patient labels provided.? Primary RN updated.??
[2024-12-08] MEDS: KETOROLAC 15 MG/ML VIAL (*BKC) IV PUSH ×3 (11:47→23:35)
--- NOTE | 2024-12-08 11:48 | PC.NURSE ---
Dr. Haines notifed of BP, orders received to recheck BP in 2 hours and call if greater than 150/90
[2024-12-08] MEDS: SIMETHICONE 80 MG TAB.CHEW PO ×2 (13:51→17:27)
[2024-12-08] MEDS: DEXTROSE 5%/0.45% SOD CHL 1,000 ML 125 ML IV CONT (15:23)
[2024-12-08] MEDS: DOCUSATE SODIUM 100 MG CAPSULE PO (17:27)
[2024-12-09] VITALS (9 sets, daily range): BP systolic 128–152; BP diastolic 82–105; PULSE 87–98; RESP 16–18; TEMP 36.4–36.9; O2SAT 98–100
[2024-12-09 05:12] LABS: Hematocrit 39.8 % (37.0-47.0); Hemoglobin 13.9 g/dL (12.0-15.0); Immature Granulocyte Percent A 0.5 % (0-0.5); Lymphocytes Absolute Auto 3.50 K/mm3 (0.9-3.2); Mean Corpuscular HGB Conc 34.9 g/dl (32-36); Mean Corpuscular Hemoglobin 33.3 pg (26-34); Mean Corpuscular Volume 95.2 fl (80-100); Nucleated Red Blood Cells Absolute Auto 0.000 K/mm3 (0.0-0.012); Nucleated Red Blood Cells Perc 0.0 % (0.0-0.2); Platelet Count Result 188 k/mm3 (150-375); Red Blood Count 4.18 M/mm3 (4.2-5.4); White Blood Count 14.0 K/mm3 (4.5-10.0)
[2024-12-09] MEDS: IBUPROFEN 600 MG TABLET PO ×3 (05:33→17:51)
[2024-12-09] MEDS: ACETAMINOPHEN 500 MG TABLET 1000 MG PO ×3 (05:33→17:49)
--- NOTE | 2024-12-09 07:43 | P.PNOB_ITS ---
OB - PN: Subj Subjective Date/time seen: 12/09/24 07:43 Patient comments: no complaints, pain well controlled and other (no PIH sx) [place] baby status: doing well and NICU OB - PN: Obj Data Labs 12/09/24 04:56 Labs: Laboratory Results - last 24 hr 12/09/24 04:56 WBC 14.0 H RBC 4.18 L Hgb 13.9 Hct 39.8 MCV 95.2 MCH 33.3 MCHC 34.9 RDW 12.1 Plt Count 188 MPV 11.4 H Immature Gran % (Auto) 0.5 Neut % (Auto) 68.1 Lymph % (Auto) 25.0 Scurry % (Auto) 5.9 Eos % (Auto) 0.2 Baso % (Auto) 0.3 Lymph # (Auto) 3.50 H Scurry # (Auto) 0.8 H Eos # (Auto) 0.0 Baso # (Auto) 0.0 Abs Immat Gran (auto) 0.07 H Absolute Neuts (auto) 9.5 H Absolute Nucleated RBC 0.000 Nucleated RBC % 0.0 OB - PN A/P Assessment and Plan (1) Gestational hypertension: Code(s): O13.9 - Gestational [-induced] hypertension without significant proteinuria, unspecified trimester Status: Acute Assessment and Plan: BP's elevated since delivery. Restarted Procardia xl first 30 mg then 60 mg BID. Last 2 BP's improved. Will allow patient to go on pass to see Plan day: 1 Plan: routine care Time Spent With Patient Time: Total time spent is greater than 50% in coordination of care (as documented) at patient's floor/unit and/or counseling patient: Exam 2 Narrative: inc c/d/i : Bimanual exam- vagina & uterus: other (Uterus firm, nt @U)
[2024-12-09] MEDS: MULTIVIT/MIN/PREN/FOL AC/IRON TABLET 1 TAB PO (08:52)
[2024-12-09] MEDS: SIMETHICONE 80 MG TAB.CHEW PO ×3 (08:52→17:48)
[2024-12-09] MEDS: DOCUSATE SODIUM 100 MG CAPSULE PO ×2 (08:52→17:48)
[2024-12-09] MEDS: LABETALOL HCL 100 MG TABLET PO ×2 (11:16→19:26)
--- NOTE | 2024-12-09 12:03 | PC.NURSE ---
Introductions were made, then consulted with patient to assess any needs related to . Per mother she is still using the breast pump without any pain, encouraged to keep using the pump consistently. Resources provided for inpatient and outpatient services with the feeding sheet, mom/baby guide and name written on the communication board. Mother voiced understanding of information and will call if there is a request for assistance. Reported to the Primary RN.
--- NOTE | 2024-12-09 13:30 | PC.NURSE ---
1315-Patient went on 6 hr pass to visit in [facility] NICU.
--- NOTE | 2024-12-09 15:32 | WPDANLDPN2 ---
Anes-Prog Note L&D Date/Time: 12/09/24 15:32 Comfortable throughout: section Neuraxial method: spinal Epidural/Spinal procedure site: clean & non-tender Neuro status: Neuro function grossly intact. Cardiovascular status: normal Respiratory status: normal Airway patency: baseline Mental status: baseline Post-Op hydration status: normal Vital Signs: Last Vital Signs Temp 36.9 C 12/09/24 12:15 Pulse 94 12/09/24 12:15 Resp 16 12/09/24 12:15 BP 141/88 H 12/09/24 12:15 Pulse Ox 99 12/09/24 12:15 O2 Del Method Room Air 12/09/24 09:00 Pain score (VAS): 3 I/O: Intake & Output 12/08/24 12/09/24 12/09/24 23:59 07:59 15:59 Intake Total 772 925 Output Total 6639 6160 2070 Balance -6595 -1715 -1148 Post-procedural complaints: none Patient feedback: Patient satisfied with anesthetic care.
--- NOTE | 2024-12-09 15:33 | WPDANLDNPN2 ---
Anes-Prog Note L&D-Neuraxial Date/Time: 12/09/24 15:33 Neuraxial medications: intrathecal PF morphine Opiod-related complaints: none Patient feedback: Patient satisfied with post-operative pain management.
--- NOTE | 2024-12-09 17:55 | PC.NURSE ---
1750-Pt returned from [facility] visiting infant.
[2024-12-10 04:30] VITALS: BP 124/83; PULSE 100; RESP 15; TEMP 36.6; O2SAT 100
[2024-12-10] MEDS: IBUPROFEN 600 MG TABLET PO ×2 (04:30→11:34)
[2024-12-10] MEDS: ACETAMINOPHEN 500 MG TABLET 1000 MG PO ×2 (04:30→11:34)
--- NOTE | 2024-12-10 07:45 | P.PNOB_ITS ---
OB - PN: Subj Subjective Date/time seen: 12/10/24 07:45 Patient comments: no complaints, pain well controlled and tolerating diet [place] baby status: doing well and NICU OB - PN: Obj Data Labs 12/09/24 04:56 OB - PN A/P Assessment and Plan (1) Gestational hypertension: Code(s): O13.9 - Gestational [-induced] hypertension without significant proteinuria, unspecified trimester Status: Acute Assessment and Plan: Required increased BP medication yesterday. Stable with Proc xl 60 bid and Lab 100 BID. Will dc home. Follow up 1 week. Call if BP's >160/110 or <100/60 Plan day: 2 Plan: routine care and discharge home Time Spent With Patient Time: Total time spent is greater than 50% in coordination of care (as documented) at patient's floor/unit and/or counseling patient: Exam 2 Narrative: inc c/d/i : Bimanual exam- vagina & uterus: other (Uterus firm, nt @U)
[2024-12-10 08:35] VITALS: BP 147/81; PULSE 102; RESP 18; TEMP 36.9; O2SAT 99
--- NOTE | 2024-12-10 09:05 | PC.NURSE ---
Consulted with mother concerning needs and she shared her ability to independently use the breast pump without pain. Reinforced understanding of milk production, transition of milk, signs of adequate intake, transition of stool, prevention/relief of engorgement, plugged ducts, mastitis, community resources, and when to call a provider using the resource of the feeding sheet along with the mom and baby guide. Mother voiced understanding of the information shared, is confident to continue using her breast pump at home, when to call for assistance, denies any additional assistance or education at this time. Reported to the Primary RN.
[2024-12-10] MEDS: DOCUSATE SODIUM 100 MG CAPSULE PO (09:18)
[2024-12-10] MEDS: MULTIVIT/MIN/PREN/FOL AC/IRON TABLET 1 TAB PO (09:18)
[2024-12-10] MEDS: LABETALOL HCL 100 MG TABLET PO (09:18)
[2024-12-10] MEDS: SIMETHICONE 80 MG TAB.CHEW PO ×2 (09:18→11:35)
--- NOTE | 2024-12-10 10:32 | PC.NURSE ---
Patient instructed on vieweing the discharge video Mother & Baby Care, The First Two Weeks. Patient was given the opportunity and encouraged to ask questions. Patient verbalized understanding of information shared and has been given the mother/baby guide for home reference.
[2024-12-12 08:09] VITALS: BP 140/96; PULSE 79; RESP 18; TEMP 36.2; O2SAT 97
== END 2024-12-10 12:37 | disposition home or self-care (01) | DRG 788 ==
LOC: ANHLDR 05:37 → ANHOB2 11:05
PROVIDERS: Admitting Provider Obstetrics & Gynecology Gynecology; Visit Provider Obstetrics & Gynecology Gynecology
PROC: 10D00Z1 Extraction of Products of Conception, Low, Open Approach (ICD-10-PCS; CPT 59514; principal; 2024-12-08 07:30)
DX: O34.211 Maternal care for low transverse scar from previous cesarean delivery (principal); Z37.0 Single live birth; Z3A.39 39 weeks gestation of pregnancy; O13.4 Gestational [pregnancy-induced] hypertension without significant proteinuria, complicating childbirth
CPT/HCPCS: 36415; 85025; 86593; 86850; 86900; 86901; 88307; J0690; A9270; J1100; J1885; J2274; J2405; J2590; J7120